=== PATIENT | male | born 1945 | race Caucasian/White ===

== ENCOUNTER 2019-06-02 10:56 | Inpatient (IN) | payer MEDICARE, OTHER ==
--- NOTE | 2019-06-02 11:37 | EDM.PDOC ---
ED HPI GENERAL MEDICAL PROBLEM - General Chief Complaint: Genitourinary Problem Stated Complaint: LEAKAGE/GALLBLADDER Time Seen by Provider: 06/02/19 11:37 - History of Present Illness INITIAL COMMENTS - FREE TEXT/NARRATIVE: 74-year-old male presents the emergency room with lower abdominal pain. Apparently the gentleman has not voided in about a week. He is developing some pressure in his lower abdomen. He does drink coffee has a drink or 2 nightly and drink some soda pop. He denies any nausea or vomiting. And he has not had any constipation. At this time he also complains of a sore throat. He denies any chest pain chest pressure or breathing difficulties or shortness of breath. This gentleman has not seen a physician ever he says. - Related Data Allergies Allergy/AdvReac Type Severity Reaction Status Date / Time No Known Allergies Allergy Verified 06/02/19 11:24 Home Meds: Home Meds Cranberry 500 mg PO DAILY 06/02/19 [History] Multivit-Minerals/Herbal 121 [Urinozinc Prostate Formula Cap] 1 tab PO DAILY 01/12 [History] Past Medical History - Past Health History Medical/Surgical History: Denies Medical/Surgical History Social & Family History - Tobacco Use Smoking Status *Q: Never Smoker - Caffeine Use Caffeine Use: Reports: Coffee - Recreational Drug Use Recreational Drug Use: No ED ROS GENERAL - Review of Systems Review Of Systems: See Below Constitutional: Reports: No Symptoms HEENT: Reports: Throat Pain Respiratory: Reports: No Symptoms Cardiovascular: Reports: No Symptoms GI/Abdominal: Reports: Abdominal Pain (Lower abdominal pain). Denies: Constipation, Diarrhea, Nausea, Vomiting : Reports: Urinary Retention Musculoskeletal: Reports: No Symptoms Skin: Reports: No Symptoms Neurological: Reports: No Symptoms Psychiatric: Reports: No Symptoms ED EXAM, GI/ABD - Physical Exam Exam: See Below Exam Limited By: No Limitations General Appearance: Alert, No Apparent Distress Eyes: Bilateral: Normal Appearance Ears: Normal External Exam, Normal Canal, Hearing Grossly Normal, Normal TMs Nose: Normal Inspection, Normal Mucosa, No Blood Throat/Mouth: Normal Inspection, Normal Lips, Normal Teeth, Normal Gums, Normal Oropharynx, Normal Voice, No Airway Compromise Head: Atraumatic, Normocephalic, Other (Acute changes noted with his teeth but they are worn down) Neck: Normal Inspection, Supple, Non-Tender. No: Lymphadenopathy (L), Lymphadenopathy (R) Respiratory/Chest: No Respiratory Distress, Lungs Clear, Normal Breath Sounds Cardiovascular: Regular Rate, Rhythm, No Edema, No Murmur GI/Abdominal Exam: Normal Bowel Sounds, Soft, Non-Tender, Other (Time of my exam his bladder was draining and he no longer had discomfort) Back Exam: Normal Inspection. No: CVA Tenderness (L), CVA Tenderness (R) Neurological: Alert, Oriented, Normal Cognition Skin Exam: Warm, Dry, Intact Lymphatic: No Adenopathy Course - Vital Signs Last Recorded V/S: Last Vital Signs Temp 36.9 C 06/02/19 11:22 Pulse 92 06/02/19 11:22 Resp 16 06/02/19 11:22 BP 219/115 H 06/02/19 11:22 Pulse Ox 100 06/02/19 11:22 - Orders/Labs/Meds Orders: Active Orders 24 hr Category Date Time Status Bladder Scan [RC] ASDIRECTED Care 06/02/19 12:20 Active Insert Tran Catheter [Insert Urinary Catheter] [OM.PC] Care 06/02/19 12:30 Ordered Q24H Urinary Catheter Assessment [RC] ASDIRECTED Care 06/02/19 12:21 Active CULTURE STREP A CONFIRMATION [RM] Stat Lab 06/02/19 12:18 Results Rapid Strep w/culture conf [STREP SCRN A RAPID W CULT Lab 06/02/19 12:18 Results CONF] [] Stat Lactated Ringers [Ringers, Lactated] 1,000 ml Med 06/02/19 13:26 Ordered IV .BOLUS Medication Orders Lactated Ringer's (Ringers, Lactated) 1,000 mls @ 999 mls/hr IV .BOLUS ONE Stop: 06/02/19 14:26 Labs: Laboratory Tests 06/02/19 06/02/19 06/02/19 Range/Units 11:40 12:25 12:25 WBC 13.22 H (4.23-9.07) K/mm3 RBC 4.20 L (4.63-6.08) M/mm3 Hgb 12.8 L (13.7-17.5) gm/dl Hct 38.9 L (40.1-51.0) % MCV 92.6 H (79.0-92.2) fl MCH 30.5 (25.7-32.2) pg MCHC 32.9 (32.2-35.5) g/dl RDW Std Deviation 43.0 (35.1-43.9) fL Plt Count 292 (163-337) K/mm3 MPV 10.1 (9.4-12.3) fl Neutrophils % (Manual) 86 H (40-60) % Band Neutrophils % 0 (0-10) % Lymphocytes % (Manual) 6 L (20-40) % Atypical Lymphs % 0 % Monocytes % (Manual) 7 (2-10) % Eosinophils % (Manual) 0 L (0.8-7.0) % Basophils % (Manual) 1 (0.2-1.2) Platelet Estimate Adequate RBC Morph Comment Normal Sodium 144 (136-145) mEq/L Potassium 4.7 (3.5-5.1) mEq/L Chloride 106 (98-107) mEq/L Carbon Dioxide 24 (21-32) mEq/L Anion Gap 18.7 H (5-15) BUN 69 H (7-18) mg/dL Creatinine 4.0 H (0.7-1.3) mg/dL Est Cr Clr Drug Dosing 17.78 mL/min Estimated GFR (MDRD) 15 (>60) mL/min BUN/Creatinine Ratio 17.3 (14-18) Glucose 116 H (83-115) mg/dL Calcium 9.4 (8.5-10.1) mg/dL Total Bilirubin 1.2 H (0.2-1.0) mg/dL AST 25 (15-37) U/L ALT 45 (16-63) U/L Alkaline Phosphatase 93 (46-116) U/L Total Protein 7.7 (6.4-8.2) g/dl Albumin 3.5 (3.4-5.0) g/dl Globulin 4.2 gm/dL Albumin/Globulin Ratio 0.8 L (1-2) Urine Color Yellow (Yellow) Urine Appearance Clear (Clear) Urine pH 5.5 (5.0-8.0) Ur Specific [place] 1.025 (1.005-1.030) Urine Protein Negative (Negative) Urine Glucose (UA) Negative (Negative) Urine Ketones Negative (Negative) Urine Occult Blood 2+ H (Negative) Urine Nitrite Negative (Negative) Urine Bilirubin Negative (Negative) Urine Urobilinogen 0.2 (0.2-1.0) Ur Leukocyte Esterase Negative (Negative) Urine RBC 20-30 H (0-5) /hpf Urine WBC 0-5 (0-5) /hpf Ur Squamous Epith Cells 0-5 (0-5) /hpf Urine Bacteria Few (FEW) /hpf Urine Mucus Rare (FEW) /hpf Meds: Medications Generic Name Dose Route Start Last Admin Trade Name Freq PRN Reason Stop Dose Admin Lactated Ringer's 1,000 mls @ 999 mls/hr 06/02/19 13:26 Ringers, Lactated IV 06/02/19 14:26 .BOLUS ONE Discontinued Medications Generic Name Dose Route Start Last Admin Trade Name Freq PRN Reason Stop Dose Admin Tamsulosin HCl 0.4 mg 06/02/19 11:58 06/02/19 12:13 Flomax PO 06/02/19 11:59 0.4 mg ONETIME ONE Administration - Re-Assessments/Exams Free Text/Narrative Re-Assessment/Exam: 06/02/19 12:05 Seeing appropriately did a bladder scan found over 1400 ccs, placed a Tran and the patient is significantly improving however the patient has significant hypertension and we are watching this closely this will probably require treatment. And the patient has a sore throat. Labs ordered we will start him on Flomax. 06/02/19 13:39 Labs have all returned urinalysis does not indicate a infectious process CBC shows a mild increase in his white count chemistries are very concerning with a BUN of 69 and a creatinine of 4.0 indicating a acute renal failure/injury most likely due to his post renal obstructive process. I did discuss the situation with our hospitalist who will admit the patient. Departure - Departure Time of Disposition: 13:44 Disposition: Admitted As Inpatient 68 Clinical Impression: Acute renal injury, Bladder outlet obstruction - Discharge Information Referrals: PCP,None [Primary Care Provider] - Forms: ED Department Discharge Sepsis Event Note - Evaluation Sepsis Screening Result: No Definite Risk - Focused Exam Vital Signs: Vital Signs Temp Pulse Resp BP Pulse Ox 06/02/19 11:22 36.9 C 92 16 219/115 H 100 Date Exam was Performed: 06/02/19 Time Exam was Performed: 13:38 - My Orders Last 24 Hours: My Active Orders 06/02/19 12:18 CULTURE STREP A CONFIRMATION [RM] Stat Rapid Strep w/culture conf [STREP SCRN A RAPID W CULT CONF] [RM] Stat 06/02/19 12:20 Bladder Scan [RC] ASDIRECTED 06/02/19 12:21 Urinary Catheter Assessment [RC] ASDIRECTED 06/02/19 12:30 Insert Tran Catheter [Insert Urinary Catheter] [OM.PC] Q24H 06/02/19 13:26 Lactated Ringers [Ringers, Lactated] 1,000 ml IV .BOLUS - Assessment/Plan Last 24 Hours: My Active Orders 06/02/19 12:18 CULTURE STREP A CONFIRMATION [RM] Stat Rapid Strep w/culture conf [STREP SCRN A RAPID W CULT CONF] [RM] Stat 06/02/19 12:20 Bladder Scan [RC] ASDIRECTED 06/02/19 12:21 Urinary Catheter Assessment [RC] ASDIRECTED 06/02/19 12:30 Insert Tran Catheter [Insert Urinary Catheter] [OM.PC] Q24H 06/02/19 13:26 Lactated Ringers [Ringers, Lactated] 1,000 ml IV .BOLUS
[2019-06-02] MEDS ORDERED: Tamsulosin 0.4 MG Cap.ER PO ONE (11:58)
[2019-06-02] MEDS ORDERED: Lactated Ringers 1,000 ML IV ONE (13:26)
--- NOTE | 2019-06-02 15:40 | PCM.HP.2 ---
H&P History of Present Illness - General Date of Service: 06/02/19 Admit Problem/Dx: Admission Diagnosis/Problem Admission Diagnosis/Problem Acute renal injury due to hypovolemia Source of Information: Patient, Family, Provider, RN Notes Reviewed History Limitations: Reports: No Limitations - History of Present Illness Initial Comments - Free Text/Narative: This is a 74 yo white male with no past medical hx/o presents to ED with complaints of lower abdominal pain and was diagnosed with acute urinary retention. He states he had trouble voiding for about a week now but really he has been having urinary retention since new year's day. He states he drinks coffee, alcohol, and soda considerably. He denies having GI or other symptoms such as dysuria and hematuria. Patient had retained urine of > 1400 after bladder scan in ED. He had plaza catheter placed in prior to coming to the floor for further management. - Related Data Allergies/Adverse Reactions: Allergies Allergy/AdvReac Type Severity Reaction Status Date / Time No Known Allergies Allergy Verified 06/02/19 11:24 Home Medications: Home Meds Cranberry 500 mg PO DAILY 06/02/19 [History] Multivit-Minerals/Herbal 121 [Urinozinc Prostate Formula Cap] 1 tab PO DAILY 01/12 [History] Past Medical History - Past Health History Medical/Surgical History: Denies Medical/Surgical History HEENT History: Reports: Other (See Below) Other HEENT History: allergies Gastrointestinal History: Reports: GERD Genitourinary History: Reports: Retention, Urinary Other Genitourinary History: seems to happen after he was drinking Psychiatric History: Reports: Anxiety Other Psychiatric History: no formally diagnosed - Infectious Disease History Infectious Disease History: Reports: Measles, Mumps - Past Surgical History HEENT Surgical History: Reports: None Social & Family History - Family History Family Medical History: Noncontributory - Tobacco Use Smoking Status *Q: Never Smoker Second Hand Smoke Exposure: No - Caffeine Use Caffeine Use: Reports: Coffee, Soda - Alcohol Use Days Per Week of Alcohol Use: 2 Number of Drinks Per Day: 0 Total Drinks Per Week: 0 Date of Last Drink: 05/26/19 Time of Last Drink: 23:00 - Recreational Drug Use Recreational Drug Use: No H&P Review of Systems - Review of Systems: Review Of Systems: Comprehensive ROS is negative, except as noted in HPI. General: Denies: Fever, Chills, Malaise, Weakness, Fatigue HEENT: Reports: No Symptoms Pulmonary: Denies: Shortness of Breath Cardiovascular: Denies: Chest Pain, Dyspnea on Exertion, Lightheadedness Gastrointestinal: Denies: Abdominal Pain, Nausea, Vomiting Genitourinary: Reports: Retention Musculoskeletal: Reports: No Symptoms Skin: Reports: No Symptoms Psychiatric: Denies: Confusion, Anxiety, Agitation Neurological: Denies: Confusion, Numbness, Syncope, Trouble Speaking, Weakness Hematologic/Lymphatic: Reports: No Symptoms Immunologic: Reports: No Symptoms Exam - Exam Exam: See Below - Vital Signs Vital Signs: Last Vital Signs Temp 36.9 C 06/02/19 11:22 Pulse 92 06/02/19 11:22 Resp 16 06/02/19 11:22 BP 219/115 H 06/02/19 11:22 Pulse Ox 100 06/02/19 11:22 Weight: 75.568 kg - Exam General: Alert, Oriented, Cooperative HEENT: Conjunctiva Clear, EACs Clear, EOMI, Hearing Intact, Nares Patent, Normal Nasal Septum, Posterior Pharynx Clear, Pupils Equal, Pupils Reactive, Other (halitosis) Neck: Supple, Trachea Midline Lungs: Clear to Auscultation, Normal Respiratory Effort Cardiovascular: Regular Rate, Regular Rhythm GI/Abdominal Exam: Normal Bowel Sounds, Soft, Non-Tender, No Organomegaly, No Distention, No Abnormal Bruit, No Mass (Male) Exam: Other (indwelling plaza catheter). No: Normal Prostate, Hernia , Scrotal Swelling Rectal (Males) Exam: BPH. No: Normal Rectal Tone, Fecal Impaction, Hemorrhoids , Perirectal Abscess, Prostate Nodule, Rectal Fissure, Tenderness Back Exam: Normal Inspection, Decreased Range of Motion Extremities: Normal Inspection, Normal Range of Motion, Non-Tender, No Pedal Edema, Normal Capillary Refill Peripheral Pulses: 2+: Dorsalis Pedis (L), Dorsalis Pedis (R) Skin: Warm, Dry, Intact Skin Alteration Location (Drawings Not To Scale): 1 - excoriations and mild erythema 2 - excoriations and mild erythema Neuro Extensive - Mental Status: Oriented x3, Normal Cognition, Memory Intact Neuro Extensive - Motor, Sensory, Reflexes: CN II-XII Intact, Normal Gait Psychiatric: Alert, Normal Affect, Normal Mood - Patient Data Lab Results Last 24 hrs: Laboratory Results - last 24 hr 06/02/19 06/02/19 06/02/19 Range/Units 11:40 12:25 12:25 WBC 13.22 H (4.23-9.07) K/mm3 RBC 4.20 L (4.63-6.08) M/mm3 Hgb 12.8 L (13.7-17.5) gm/dl Hct 38.9 L (40.1-51.0) % MCV 92.6 H (79.0-92.2) fl MCH 30.5 (25.7-32.2) pg MCHC 32.9 (32.2-35.5) g/dl RDW Std Deviation 43.0 (35.1-43.9) fL Plt Count 292 (163-337) K/mm3 MPV 10.1 (9.4-12.3) fl Neutrophils % (Manual) 86 H (40-60) % Band Neutrophils % 0 (0-10) % Lymphocytes % (Manual) 6 L (20-40) % Atypical Lymphs % 0 % Monocytes % (Manual) 7 (2-10) % Eosinophils % (Manual) 0 L (0.8-7.0) % Basophils % (Manual) 1 (0.2-1.2) Platelet Estimate Adequate RBC Morph Comment Normal Sodium 144 (136-145) mEq/L Potassium 4.7 (3.5-5.1) mEq/L Chloride 106 (98-107) mEq/L Carbon Dioxide 24 (21-32) mEq/L Anion Gap 18.7 H (5-15) BUN 69 H (7-18) mg/dL Creatinine 4.0 H (0.7-1.3) mg/dL Est Cr Clr Drug Dosing 17.78 mL/min Estimated GFR (MDRD) 15 (>60) mL/min BUN/Creatinine Ratio 17.3 (14-18) Glucose 116 H (83-115) mg/dL Calcium 9.4 (8.5-10.1) mg/dL Total Bilirubin 1.2 H (0.2-1.0) mg/dL AST 25 (15-37) U/L ALT 45 (16-63) U/L Alkaline Phosphatase 93 (46-116) U/L Total Protein 7.7 (6.4-8.2) g/dl Albumin 3.5 (3.4-5.0) g/dl Globulin 4.2 gm/dL Albumin/Globulin Ratio 0.8 L (1-2) Urine Color Yellow (Yellow) Urine Appearance Clear (Clear) Urine pH 5.5 (5.0-8.0) Ur Specific [place] 1.025 (1.005-1.030) Urine Protein Negative (Negative) Urine Glucose (UA) Negative (Negative) Urine Ketones Negative (Negative) Urine Occult Blood 2+ H (Negative) Urine Nitrite Negative (Negative) Urine Bilirubin Negative (Negative) Urine Urobilinogen 0.2 (0.2-1.0) Ur Leukocyte Esterase Negative (Negative) Urine RBC 20-30 H (0-5) /hpf Urine WBC 0-5 (0-5) /hpf Ur Squamous Epith Cells 0-5 (0-5) /hpf Urine Bacteria Few (FEW) /hpf Urine Mucus Rare (FEW) /hpf Result Diagrams: 06/03/19 06:10 06/03/19 06:10 Rodo Results Last 24 hrs: Microbiology 06/02/19 12:18 Group A Streptococcus Rapid Screen - Final Throat NEGATIVE STREP A SCREEN REFERENCE RANGE: NEGATIVE Sepsis Event Note - Evaluation Sepsis Screening Result: No Definite Risk - Focused Exam Vital Signs: Vital Signs Temp Pulse Resp BP Pulse Ox 06/02/19 11:22 36.9 C 92 16 219/115 H 100 Date Exam was Performed: 06/03/19 Time Exam was Performed: 18:53 Problem List Initiated/Reviewed/Updated: Yes Orders Last 24hrs: Active Orders 24 hr Category Date Time Status Admission Status [Patient Status] [ADT] Routine ADT 06/02/19 14:15 Active Bladder Scan [RC] ASDIRECTED Care 06/02/19 12:20 Active Insert Plaza Catheter [Insert Urinary Catheter] [OM.PC] Care 06/02/19 12:30 Ordered Q24H Urinary Catheter Assessment [RC] ASDIRECTED Care 06/02/19 12:21 Active CULTURE STREP A CONFIRMATION [RM] Stat Lab 06/02/19 12:18 Results Rapid Strep w/culture conf [STREP SCRN A RAPID W CULT Lab 06/02/19 12:18 Results CONF] [RM] Stat hydrALAZINE [Apresoline] Med 06/02/19 15:45 Once 20 mg IV ONETIME ONE Medication Orders Hydralazine HCl (Apresoline) 20 mg IV ONETIME ONE Stop: 06/02/19 15:46 Assessment/Plan Comment:: Acute: Urinary Retention Suspected 2/2 WILCOX vs BPH. Carries no hx/o BPH in the past. Had trouble voiding during new year's day and now only makes dribbles. Had > 1400 cc of retained urine on bladder scan in ED. Plan: Plaza catheter, flomax, and finasteride. Urology evaluation after discharge. EDENILSON likely 2/2 Obstructive Uropathy. BUN of 69 and Cr of 4. Carries no hx/o CKD in the past. Plan: fluid challenge, electrolytes studies and renal US for obstructive Uropathy. Malignant HTN. Documented BP of 195/109 and 186/88 mmHg. No hx/o HTN. He is asymptomatic except for urinary retention. Plan: Stat Clonidine and Hydralazine. Start Amlodipine in AM. Hold diuretics for now due to EDENILSON. Leukocytosis with WBC of 13.22 with Neutrophils of 86%. No signs or symptoms of systemic infection. Will monitor. Mild Hyperglycemia with BS 116. Carries no hx/o Diabetes or Glucose Intolerance. Likely 2/2 stress. Will monitor. Chronic: None Plan: Admit to [facility]. IV fluids for hydration. Routine AM Labs. Regular diet. DVT/ GI Prophylaxis. Code status is DNR. - Mortality Measure Prognosis:: Good
[2019-06-02] MEDS ORDERED: hydrALAZINE 20 MG/ML SDV IV ONE (15:45)
[2019-06-02] MEDS ORDERED: Ondansetron 4 MG/2 ML SDV IV PRN (16:42)
[2019-06-02] MEDS ORDERED: Acetaminophen/HYDROcodone 325-5 MG Tab PO PRN (16:42)
[2019-06-02] MEDS ORDERED: Bisacodyl 5 MG Tab PO PRN (16:42)
[2019-06-02] MEDS ORDERED: Albuterol/Ipratropium 3.0-0.5 MG/3 ML Neb Soln NEB PRN (16:42)
[2019-06-02] MEDS ORDERED: Docusate Sodium 100 MG Cap PO PRN (16:42)
[2019-06-02] MEDS ORDERED: Promethazine 6.25 MG in Sodium Chloride 0.9% 50 ML IV PRN (16:42)
[2019-06-02] MEDS ORDERED: HYDROmorphone 0.5 MG/0.5 ML Syringe IVPUSH PRN (16:42)
[2019-06-02] MEDS ORDERED: Acetaminophen 325 MG Tab PO PRN (16:42)
[2019-06-02] MEDS ORDERED: cloNIDine 0.1 MG Tab PO ONE (17:00)
[2019-06-02] MEDS ORDERED: amLODIPine 5 MG Tab PO ONE (17:00)
[2019-06-02] MEDS ORDERED: Temazepam 15 MG Cap PO PRN (21:00)
[2019-06-02] MEDS ORDERED: LORazepam 2 MG/ML SDV IVPUSH ONE (21:00)
[2019-06-02] MEDS: amLODIPine 10 MG Tab PO SCH (22:06)
[2019-06-02] MEDS: Finasteride 5 MG Tab PO SCH (22:07)
[2019-06-03] MEDS: Sodium Chloride 0.9% 1,000 ML IV SCH ×2 (01:20→10:01)
--- NOTE | 2019-06-03 06:58 | PCM.PN ---
- General Info Date of Service: 06/03/19 Admission Dx/Problem (Free Text): Admission Diagnosis/Problem Admission Diagnosis/Problem Acute renal injury due to hypovolemia Subjective Update: Follow Up Functional Status: Reports: Pain Controlled, Tolerating Diet, Ambulating. Denies: New Symptoms - Review of Systems General: Denies: Fever, Chills HEENT: Reports: No Symptoms Pulmonary: Denies: Shortness of Breath, Cough Cardiovascular: Denies: Chest Pain, Dyspnea on Exertion, Lightheadedness Gastrointestinal: Denies: Abdominal Pain, Nausea, Vomiting Genitourinary: Reports: No Symptoms Musculoskeletal: Reports: No Symptoms Skin: Denies: Cyanosis, Mottled, Pallor, Diaphoresis, Bruising, Rash Neurological: Denies: Difficulty Walking, Weakness, Gait Disturbance Psychiatric: Denies: Depression, Anxiety, Agitation, Hallucinations Systems Review Comment:: No overnight or acute issues. His Cr level is now down to 2.0. His blood pressures have stabilized. - Patient Data Vitals - Most Recent: Last Vital Signs Temp 36.9 C 06/03/19 04:33 Pulse 86 06/03/19 04:33 Resp 18 06/03/19 04:33 BP 143/86 H 06/03/19 04:33 Pulse Ox 94 L 06/03/19 04:33 Weight - Most Recent: 76.113 kg I&O - Last 24 Hours: Intake & Output 06/02/19 06/02/19 06/03/19 14:59 22:59 06:59 Intake Total 200 2330 Output Total 3400 650 1100 Balance -3400 -450 1230 Lab Results Last 24 Hours: Laboratory Results - last 24 hr 06/02/19 06/02/19 06/02/19 Range/Units 11:40 11:40 11:40 WBC (4.23-9.07) K/mm3 RBC (4.63-6.08) M/mm3 Hgb (13.7-17.5) gm/dl Hct (40.1-51.0) % MCV (79.0-92.2) fl MCH (25.7-32.2) pg MCHC (32.2-35.5) g/dl RDW Std Deviation (35.1-43.9) fL Plt Count (163-337) K/mm3 MPV (9.4-12.3) fl Neut % (Auto) (34.0-67.9) % Lymph % (Auto) (21.8-53.1) % Tillman % (Auto) (5.3-12.2) % Eos % (Auto) (0.8-7.0) Baso % (Auto) (0.1-1.2) % Neut # (Auto) (1.78-5.38) K/mm3 Lymph # (Auto) (1.32-3.57) K/mm3 Tillman # (Auto) (0.30-0.82) K/mm3 Eos # (Auto) (0.04-0.54) K/mm3 Baso # (Auto) (0.01-0.08) K/mm3 Neutrophils % (Manual) (40-60) % Band Neutrophils % (0-10) % Lymphocytes % (Manual) (20-40) % Atypical Lymphs % % Monocytes % (Manual) (2-10) % Eosinophils % (Manual) (0.8-7.0) % Basophils % (Manual) (0.2-1.2) Platelet Estimate RBC Morph Comment Sodium (136-145) mEq/L Potassium (3.5-5.1) mEq/L Chloride (98-107) mEq/L Carbon Dioxide (21-32) mEq/L Anion Gap (5-15) BUN (7-18) mg/dL Creatinine (0.7-1.3) mg/dL Est Cr Clr Drug Dosing mL/min Estimated GFR (MDRD) (>60) mL/min BUN/Creatinine Ratio (14-18) Glucose (83-115) mg/dL Calcium (8.5-10.1) mg/dL Total Bilirubin (0.2-1.0) mg/dL AST (15-37) U/L ALT (16-63) U/L Alkaline Phosphatase (46-116) U/L Total Protein (6.4-8.2) g/dl Albumin (3.4-5.0) g/dl Globulin gm/dL Albumin/Globulin Ratio (1-2) Urine Color Yellow (Yellow) Urine Appearance Clear (Clear) Urine pH 5.5 (5.0-8.0) Ur Specific [place] 1.025 (1.005-1.030) Urine Protein Negative (Negative) Urine Glucose (UA) Negative (Negative) Urine Ketones Negative (Negative) Urine Occult Blood 2+ H (Negative) Urine Nitrite Negative (Negative) Urine Bilirubin Negative (Negative) Urine Urobilinogen 0.2 (0.2-1.0) Ur Leukocyte Esterase Negative (Negative) Urine RBC 20-30 H (0-5) /hpf Urine WBC 0-5 (0-5) /hpf Ur Squamous Epith Cells 0-5 (0-5) /hpf Urine Bacteria Few (FEW) /hpf Urine Mucus Rare (FEW) /hpf Ur Random Creatinine 177.9 H (30.0-125.0) mg/dL Ur Random Sodium 27 L (40-220) mEq/L 06/02/19 06/02/19 06/02/19 Range/Units 12:25 12:25 20:15 WBC 13.22 H (4.23-9.07) K/mm3 RBC 4.20 L (4.63-6.08) M/mm3 Hgb 12.8 L (13.7-17.5) gm/dl Hct 38.9 L (40.1-51.0) % MCV 92.6 H (79.0-92.2) fl MCH 30.5 (25.7-32.2) pg MCHC 32.9 (32.2-35.5) g/dl RDW Std Deviation 43.0 (35.1-43.9) fL Plt Count 292 (163-337) K/mm3 MPV 10.1 (9.4-12.3) fl Neut % (Auto) (34.0-67.9) % Lymph % (Auto) (21.8-53.1) % Tillman % (Auto) (5.3-12.2) % Eos % (Auto) (0.8-7.0) Baso % (Auto) (0.1-1.2) % Neut # (Auto) (1.78-5.38) K/mm3 Lymph # (Auto) (1.32-3.57) K/mm3 Tillman # (Auto) (0.30-0.82) K/mm3 Eos # (Auto) (0.04-0.54) K/mm3 Baso # (Auto) (0.01-0.08) K/mm3 Neutrophils % (Manual) 86 H (40-60) % Band Neutrophils % 0 (0-10) % Lymphocytes % (Manual) 6 L (20-40) % Atypical Lymphs % 0 % Monocytes % (Manual) 7 (2-10) % Eosinophils % (Manual) 0 L (0.8-7.0) % Basophils % (Manual) 1 (0.2-1.2) Platelet Estimate Adequate RBC Morph Comment Normal Sodium 144 145 (136-145) mEq/L Potassium 4.7 4.1 (3.5-5.1) mEq/L Chloride 106 108 H (98-107) mEq/L Carbon Dioxide 24 27 (21-32) mEq/L Anion Gap 18.7 H 14.1 (5-15) BUN 69 H 55 H (7-18) mg/dL Creatinine 4.0 H 2.9 H (0.7-1.3) mg/dL Est Cr Clr Drug Dosing 17.78 23.77 mL/min Estimated GFR (MDRD) 15 21 (>60) mL/min BUN/Creatinine Ratio 17.3 19.0 H (14-18) Glucose 116 H 139 H (83-115) mg/dL Calcium 9.4 8.5 (8.5-10.1) mg/dL Total Bilirubin 1.2 H (0.2-1.0) mg/dL AST 25 (15-37) U/L ALT 45 (16-63) U/L Alkaline Phosphatase 93 (46-116) U/L Total Protein 7.7 (6.4-8.2) g/dl Albumin 3.5 (3.4-5.0) g/dl Globulin 4.2 gm/dL Albumin/Globulin Ratio 0.8 L (1-2) Urine Color (Yellow) Urine Appearance (Clear) Urine pH (5.0-8.0) Ur Specific [place] (1.005-1.030) Urine Protein (Negative) Urine Glucose (UA) (Negative) Urine Ketones (Negative) Urine Occult Blood (Negative) Urine Nitrite (Negative) Urine Bilirubin (Negative) Urine Urobilinogen (0.2-1.0) Ur Leukocyte Esterase (Negative) Urine RBC (0-5) /hpf Urine WBC (0-5) /hpf Ur Squamous Epith Cells (0-5) /hpf Urine Bacteria (FEW) /hpf Urine Mucus (FEW) /hpf Ur Random Creatinine (30.0-125.0) mg/dL Ur Random Sodium (40-220) mEq/L 06/03/19 Range/Units 06:10 WBC 10.40 H (4.23-9.07) K/mm3 RBC 3.93 L (4.63-6.08) M/mm3 Hgb 12.0 L (13.7-17.5) gm/dl Hct 36.7 L (40.1-51.0) % MCV 93.4 H (79.0-92.2) fl MCH 30.5 (25.7-32.2) pg MCHC 32.7 (32.2-35.5) g/dl RDW Std Deviation 43.1 (35.1-43.9) fL Plt Count 285 (163-337) K/mm3 MPV 10.0 (9.4-12.3) fl Neut % (Auto) 78.0 H (34.0-67.9) % Lymph % (Auto) 8.6 L (21.8-53.1) % Tillman % (Auto) 11.0 (5.3-12.2) % Eos % (Auto) 1.3 (0.8-7.0) Baso % (Auto) 0.3 (0.1-1.2) % Neut # (Auto) 8.12 H (1.78-5.38) K/mm3 Lymph # (Auto) 0.89 L (1.32-3.57) K/mm3 Tillman # (Auto) 1.14 H (0.30-0.82) K/mm3 Eos # (Auto) 0.14 (0.04-0.54) K/mm3 Baso # (Auto) 0.03 (0.01-0.08) K/mm3 Neutrophils % (Manual) (40-60) % Band Neutrophils % (0-10) % Lymphocytes % (Manual) (20-40) % Atypical Lymphs % % Monocytes % (Manual) (2-10) % Eosinophils % (Manual) (0.8-7.0) % Basophils % (Manual) (0.2-1.2) Platelet Estimate RBC Morph Comment Sodium (136-145) mEq/L Potassium (3.5-5.1) mEq/L Chloride (98-107) mEq/L Carbon Dioxide (21-32) mEq/L Anion Gap (5-15) BUN (7-18) mg/dL Creatinine (0.7-1.3) mg/dL Est Cr Clr Drug Dosing mL/min Estimated GFR (MDRD) (>60) mL/min BUN/Creatinine Ratio (14-18) Glucose (83-115) mg/dL Calcium (8.5-10.1) mg/dL Total Bilirubin (0.2-1.0) mg/dL AST (15-37) U/L ALT (16-63) U/L Alkaline Phosphatase (46-116) U/L Total Protein (6.4-8.2) g/dl Albumin (3.4-5.0) g/dl Globulin gm/dL Albumin/Globulin Ratio (1-2) Urine Color (Yellow) Urine Appearance (Clear) Urine pH (5.0-8.0) Ur Specific [place] (1.005-1.030) Urine Protein (Negative) Urine Glucose (UA) (Negative) Urine Ketones (Negative) Urine Occult Blood (Negative) Urine Nitrite (Negative) Urine Bilirubin (Negative) Urine Urobilinogen (0.2-1.0) Ur Leukocyte Esterase (Negative) Urine RBC (0-5) /hpf Urine WBC (0-5) /hpf Ur Squamous Epith Cells (0-5) /hpf Urine Bacteria (FEW) /hpf Urine Mucus (FEW) /hpf Ur Random Creatinine (30.0-125.0) mg/dL Ur Random Sodium (40-220) mEq/L Rodo Results Last 24 Hours: Microbiology 06/02/19 12:18 Group A Streptococcus Rapid Screen - Final Throat NEGATIVE STREP A SCREEN REFERENCE RANGE: NEGATIVE Med Orders - Current: Current Medications Acetaminophen (Tylenol) 650 mg PO Q4H PRN PRN Reason: Pain (Mild 1-3)/fever Last Admin: 06/03/19 05:55 Dose: 650 mg Hydrocodone Bitart/Acetaminophen (Branch 325-5 Mg) 1 tab PO Q4H PRN PRN Reason: Pain (moderate 4-6) Albuterol/Ipratropium (Duoneb 3.0-0.5 Mg/3 Ml) 3 ml NEB Q4H PRN PRN Reason: Shortness Of Breath/wheezing Amlodipine Besylate (Norvasc) 10 mg PO BEDTIME NU Last Admin: 06/02/19 22:06 Dose: 10 mg Bisacodyl (Dulcolax) 5 mg PO DAILY PRN PRN Reason: Constipation Clonidine HCl (Catapres) 0.1 mg PO DAILY [facility] Stop: 06/03/19 09:01 Docusate Sodium (Colace) 100 mg PO BID PRN PRN Reason: Constipation Finasteride (Proscar) 5 mg PO BEDTIME [facility] Last Admin: 06/02/19 22:07 Dose: 5 mg Hydromorphone HCl (Dilaudid) 0.25 mg IVPUSH Q2H PRN PRN Reason: Pain (severe 7-10) Promethazine HCl 6.25 mg/ (Sodium Chloride) 50.25 mls @ 100 mls/hr IV Q6H PRN PRN Reason: Nausea/Vomiting Sodium Chloride (Normal Saline) 1,000 mls @ 125 mls/hr IV ASDIRECTED [facility] Last Admin: 06/03/19 01:20 Dose: 125 mls/hr Ondansetron HCl (Zofran) 4 mg IV Q6H PRN PRN Reason: Nausea/Vomiting Senna/Docusate Sodium (Senna Plus) 1 tab PO BID PRN PRN Reason: Constipation Tamsulosin HCl (Flomax) 0.4 mg PO PCBREAKFAST [facility] Temazepam (Restoril) 15 mg PO BEDTIME PRN PRN Reason: Sleep Discontinued Medications Amlodipine Besylate (Norvasc) 5 mg PO ONETIME ONE Stop: 06/02/19 17:01 Last Admin: 06/02/19 18:12 Dose: Not Given Clonidine HCl (Catapres) 0.1 mg PO ONETIME ONE Stop: 06/02/19 17:01 Last Admin: 06/02/19 17:10 Dose: 0.1 mg Hydralazine HCl (Apresoline) 20 mg IV ONETIME ONE Stop: 06/02/19 15:46 Last Admin: 06/02/19 15:49 Dose: 20 mg Lactated Ringer's (Ringers, Lactated) 1,000 mls @ 999 mls/hr IV .BOLUS ONE Stop: 06/02/19 14:26 Last Admin: 06/02/19 13:54 Dose: 999 mls/hr Lorazepam (Ativan) 0.5 mg IVPUSH ONETIME ONE Stop: 06/02/19 21:01 Tamsulosin HCl (Flomax) 0.4 mg PO ONETIME ONE Stop: 06/02/19 11:59 Last Admin: 06/02/19 12:13 Dose: 0.4 mg - Exam General: Alert, Oriented, Cooperative, No Acute Distress HEENT: Pupils Equal, Pupils Reactive, EOMI, Mucous Membr. Moist/[place] Neck: Supple Lungs: Clear to Auscultation, Normal Respiratory Effort Cardiovascular: Regular Rate, Regular Rhythm GI/Abdominal Exam: Normal Bowel Sounds, Soft, Non-Tender, No Organomegaly, No Distention, No Abnormal Bruit (Male) Exam: Other Back Exam: Normal Inspection, Decreased Range of Motion Extremities: Normal Inspection, Normal Range of Motion, Non-Tender, No Pedal Edema, Normal Capillary Refill Peripheral Pulses: 2+: Dorsalis Pedis (L), Dorsalis Pedis (R) Skin: Warm, Dry, Intact Neurological: No New Focal Deficit Psy/Mental Status: Alert, Normal Affect, Normal Mood Sepsis Event Note - Evaluation Sepsis Screening Result: No Definite Risk - Focused Exam Vital Signs: Vital Signs Temp Pulse Resp BP Pulse Ox 06/03/19 04:33 36.9 C 86 18 143/86 H 94 L 06/03/19 00:04 37.3 C 88 18 143/79 H 94 L 06/02/19 22:06 132/72 06/02/19 20:16 37.1 C 81 18 132/72 96 Date Exam was Performed: 06/03/19 Time Exam was Performed: 18:55 - Problem List Review Problem List Initiated/Reviewed/Updated: Yes - My Orders Last 24 Hours: My Active Orders 06/02/19 16:42 Oxygen Therapy [RC] PRN VTE/DVT Education [RC] BID Vital Signs [RC] Q4HR Consult to Case Management/Rewinder [CONS] Routine Consult to Spiritual Care [CONS] Routine Acetaminophen [Tylenol] 650 mg PO Q4H PRN Acetaminophen/HYDROcodone [Branch 325-5 MG] 1 tab PO Q4H PRN Albuterol/Ipratropium [DuoNeb 3.0-0.5 MG/3 ML] 3 ml NEB Q4H PRN Docusate Sodium [Colace] 100 mg PO BID PRN Docusate Sodium/Sennosides [Senna Plus] 1 tab PO BID PRN HYDROmorphone [Dilaudid] 0.25 mg IVPUSH Q2H PRN Ondansetron [Zofran] 4 mg IV Q6H PRN Promethazine [Phenergan] 6.25 mg Sodium Chloride 0.9% [Normal Saline] 50 ml IV Q6H bisacodyL [Dulcolax] 5 mg PO DAILY PRN Sequential Compression Device [OM.PC] Per Unit Routine Resuscitation Status Routine 06/02/19 16:43 Antiembolic Devices [RC] BID RT Aerosol Therapy [RC] ASDIRECTED 06/02/19 16:45 Sodium Chloride 0.9% [Normal Saline] 1,000 ml IV ASDIRECTED 06/02/19 21:00 Finasteride [Proscar] 5 mg PO BEDTIME Temazepam [Restoril] 15 mg PO BEDTIME PRN amLODIPine [Norvasc] 10 mg PO BEDTIME 06/02/19 22:00 CREATU+5 HIAA Routine UREA NITROGEN, URINE Routine URIC ACID, URINE Routine 06/02/19 Dinner Regular Diet [DIET] 06/03/19 06:10 CBC WITH AUTO DIFF [HEME] AM COMPREHENSIVE METABOLIC PN,CMP [CHEM] AM MAGNESIUM [CHEM] AM PHOSPHORUS [CHEM] AM 06/03/19 07:00 Retroperitoneal Comp [US] Routine 06/03/19 09:00 cloNIDine [Catapres] 0.1 mg PO DAILY 06/03/19 10:00 Tamsulosin [Flomax] 0.4 mg PO PCBREAKFAST 06/04/19 05:11 CBC WITH AUTO DIFF [HEME] AM COMPREHENSIVE METABOLIC PN,CMP [CHEM] AM MAGNESIUM [CHEM] AM PHOSPHORUS [CHEM] AM 06/05/19 05:11 CBC WITH AUTO DIFF [HEME] AM COMPREHENSIVE METABOLIC PN,CMP [CHEM] AM MAGNESIUM [CHEM] AM PHOSPHORUS [CHEM] AM 06/06/19 05:11 COMPREHENSIVE METABOLIC PN,CMP [CHEM] AM MAGNESIUM [CHEM] AM PHOSPHORUS [CHEM] AM - Plan Plan:: Acute: Urinary Retention Suspected 2/2 WILCOX vs BPH, Improved. Carries no hx/o BPH in the past. Had trouble voiding during new year's day and now only makes dribbles. Had > 1400 cc of retained urine on bladder scan in ED. Has good urine output. Plan: Tran catheter, flomax, and finasteride. Urology evaluation after discharge. EDENILSON 2/2 Obstructive Uropathy, Improved with fluid challenge. BUN of 69 and Cr of 4. Carries no hx/o CKD in the past. Based on renal work up he has no renal disease and his renal ultrasound shows no obstructive uropathy. Malignant HTN, Improved. Documented BP of 195/109 and 186/88 mmHg. No hx/o HTN. He is asymptomatic except for urinary retention. Plan: Stat Clonidine and Hydralazine. Start Amlodipine and ARB/HCTZ. Leukocytosis with WBC of 13.22 with Neutrophils of 86%, Improved. No signs or symptoms of systemic infection. Will monitor. Mild Hyperglycemia with BS 116, Resolved. Carries no hx/o Diabetes or Glucose Intolerance. Likely 2/2 stress. Will monitor. Chronic: None Plan: Improved immediately with fluid challenge. IVF to d/c after current bag is done. Routine AM Labs. Possible discharge in AM.
[2019-06-03] MEDS ORDERED: cloNIDine 0.1 MG Tab PO SCH (09:00)
[2019-06-03] MEDS ORDERED: Calcium Carbonate 500 MG Tab.Chew PO PRN (09:31)
--- NOTE | 2019-06-03 09:38 | US ---
Renal ultrasound: Multiple real-time images of the kidneys were obtained. Comparison: No previous renal imaging is available. Extrarenal pelvis is noted within the right kidney which is felt to be a normal variant. No hydronephrosis is seen. No cyst or solid abnormality is appreciated within either kidney. Resistivity indices are normal within both kidneys. Right kidney length is 10.0 cm and left kidney length is 10.3 cm. Tran catheter is noted within a collapsed bladder. Impression: 1. Extrarenal pelvis within the right kidney believed to represent a normal variant. 2. Tran catheter in place within a collapsed bladder. 3. No additional abnormality is appreciated on renal ultrasound exam. Diagnostic code #2 This report was dictated in [place] Standard Time
[2019-06-03] MEDS: Tamsulosin 0.4 MG Cap.ER PO SCH (10:03)
[2019-06-03] MEDS ORDERED: Famotidine 20 MG/2 ML SDV IVPUSH ONE (11:00)
[2019-06-03] MEDS ORDERED: Pantoprazole 40 MG Vial IVPUSH ONE ×2 (11:00→13:45)
[2019-06-03] MEDS ORDERED: Famotidine 20 MG Tab PO ONE (13:45)
[2019-06-03] MEDS ORDERED: Sodium Chloride 0.9% 1,000 ML IV SCH (18:15)
[2019-06-03] MEDS: Finasteride 5 MG Tab PO SCH (20:34)
[2019-06-03] MEDS: amLODIPine 10 MG Tab PO SCH (20:38)
[2019-06-03] MEDS: Famotidine 20 MG Tab PO SCH (20:39)
[2019-06-03] MEDS ORDERED: Hydrochlorothiazide 12.5 MG Cap PO SCH (21:00)
[2019-06-03] MEDS ORDERED: Losartan 25 MG Tab PO SCH (21:00)
--- NOTE | 2019-06-04 08:01 | PCM.DCSUM1 ---
Discharge Summary - Hospital Course HPI Initial Comments: This is a 74 yo white male with no past medical hx/o presents to ED with complaints of lower abdominal pain and was diagnosed with acute urinary retention. He states he had trouble voiding for about a week now but really he has been having urinary retention since new year's day. He states he drinks coffee, alcohol, and soda considerably. He denies having GI or other symptoms such as dysuria and hematuria. Patient had retained urine of > 1400 after bladder scan in ED. He had plaza catheter placed in prior to coming to the floor for further management. Diagnosis: Stroke: No Modified [place] Scale: No Symptoms at All Modified Curtis Scale Score: 0 - Discharge Data Discharge Date: 06/04/19 (Admit date: 06/02/18) Discharge Disposition: Home, Self-Care 01 Condition: Good - Referral to Home Health Primary Care Physician: PCP None - Patient Summary/Data Consults: Consultations 06/02/19 16:42 Consult to Case Management/Bathroom Tiling Professional [CONS] Routine Consult to Spiritual Care [CONS] Routine Labs Pending at D/C: 24 hr urine nitrogen, 24 hr urine uric acid Recommended Follow-up Testing/Procedures: Follow-up with a primary care provider within 1 week. Recommend outpatient urology follow-up. Hospital Course: Desmond was admitted to the floor with abdominal pain and acute renal injury secondary to acute urinary retention. He is on no medications. He did have a Plaza catheter placed in the ED and he tolerated this well on the floor. He was noted to have good urinary output. Rectal exam was done and although his prostate did feel enlarged no nodules were noted. He was started on 0.4 mg p.o. Flomax and 5 mg p.o. finasteride at bedtime with good response. He was noted to have elevated blood pressure and 5 mg of Norvasc p.o. at bedtime, 25 mg p.o. daily HCTZ, and 25 mg p.o. daily losartan were started. Parameters were placed on these medications and he was advised to check his blood pressure prior to taking them. He was also recommended to start a low-salt diet. Renal ultrasound was obtained and showed 1 "extrarenal pelvis within the right kidney believed to represent a normal variant. 2. Plaza catheter in place with a collapsed bladder. 3. No additional abnormalities appreciated on renal ultrasound exam." His creatinine continue to trend down while here with inversely proportional increase in GFR. Urine random creatinine was 177.9 with a urine random sodium of 27. Urine uric acid and urine urea nitrogen were still pending. He was advised to establish with a primary care provider within 1 week of discharge. He was also advised to follow-up with a urologist at next available appointment. He was discharged with a Plaza catheter. He was advised to return the emergency room or follow-up with his primary care provider should symptoms return or worsen. Discharged today. - Patient Instructions Diet: Usual Diet as Tolerated, Low Sodium Activity: As Tolerated Driving: May Drive Today Showering/Bathing: May Shower Notify Provider of: Fever, Increased Pain, Nausea and/or Vomiting Other/Special Instructions: - Please take all new medications as directed. - Resume all home medications and routine home activities as tolerated. - Recommend low salt diet. - Check vitals, log it, and follow parameters before taking BP medications. - Call or follow up with your PCP for any questions or concerns after discharge. - Follow up with your PCP in 1 week. - Recommned outaptient urology eval. - Come back or seek immediate care should your symptoms persist or get worse - Discharge Plan *PRESCRIPTION DRUG MONITORING PROGRAM REVIEWED*: Not Applicable *COPY OF PRESCRIPTION DRUG MONITORING REPORT IN PATIENT SPENCER: Not Applicable Prescriptions/Med Rec: amLODIPine [Norvasc] 5 mg PO BEDTIME #30 tab Finasteride 5 mg PO BEDTIME #30 tablet hydroCHLOROthiazide [Hydrochlorothiazide] 25 mg PO DAILY #30 tab Losartan [Cozaar] 25 mg PO DAILY #30 tablet Tamsulosin [Flomax] 0.4 mg PO PCBREAKFAST #30 cap.er Home Medications: Home Meds Cranberry 500 mg PO DAILY 06/02/19 [History] Multivit-Minerals/Herbal 121 [Urinozinc Prostate Formula Cap] 1 tab PO DAILY 01/12 [History] Finasteride 5 mg PO BEDTIME #30 tablet 06/04/19 [Rx] Losartan [Cozaar] 25 mg PO DAILY #30 tablet 06/04/19 [Rx] Tamsulosin [Flomax] 0.4 mg PO PCBREAKFAST #30 cap.er 06/04/19 [Rx] amLODIPine [Norvasc] 5 mg PO BEDTIME #30 tab 06/04/19 [Rx] hydroCHLOROthiazide [Hydrochlorothiazide] 25 mg PO DAILY #30 tab 06/04/19 [Rx] Oxygen Therapy Mode: Room Air Patient Handouts: Acute Kidney Injury, Adult, Indwelling Urinary Catheter Care , Adult, Benign Prostatic Hyperplasia, Acute Urinary Retention, Male, Easy-to- Read Referrals: Fred Smith Jr, MD [Ordering Only Provider] - 06/09/19 9:00 am (please attend the scheduled follow up appointment with Uri Smith as previously scheduled-we added a hospital follow up onto this appointment as previously was scheduled.) - Discharge Summary/Plan Comment DC Time >30 min.: Yes (45 mins ) - General Info Date of Service: 06/04/19 Admission Dx/Problem (Free Text: Admission Diagnosis/Problem Admission Diagnosis/Problem Acute renal injury due to hypovolemia Functional Status: Reports: Pain Controlled, Tolerating Diet, Ambulating, Urinating, Incentive Spirometry. Denies: New Symptoms - Review of Systems General: Reports: No Symptoms. Denies: Fever, Weakness, Fatigue, Malaise, Chills HEENT: Reports: No Symptoms. Denies: Headaches, Sore Throat Pulmonary: Reports: No Symptoms. Denies: Shortness of Breath, Pleuritic Chest Pain, Cough, Sputum, Hemoptysis, Wheezing Cardiovascular: Reports: No Symptoms. Denies: Chest Pain, Palpitations, Dyspnea on Exertion, Edema Gastrointestinal: Reports: No Symptoms. Denies: Abdominal Pain, Constipation, Diarrhea, Nausea, Vomiting Genitourinary: Reports: No Symptoms. Denies: Pain Musculoskeletal: Reports: No Symptoms Skin: Reports: No Symptoms. Denies: Cyanosis Neurological: Reports: No Symptoms. Denies: Confusion, Pre-Existing Deficit, Trouble Speaking, Difficulty Walking, Gait Disturbance Psychiatric: Reports: No Symptoms - Patient Data Vitals - Most Recent: Last Vital Signs Temp 98.1 F 06/04/19 03:26 Pulse 86 06/04/19 03:26 Resp 16 06/04/19 03:26 BP 128/78 06/04/19 03:26 Pulse Ox 94 L 06/04/19 03:26 Weight - Most Recent: 166 lb 3.2 oz I&O - Last 24 hours: Intake & Output 06/03/19 06/04/19 06/04/19 22:59 06:59 14:59 Intake Total 2523 699 Output Total 1100 1200 Balance 1423 -456 Lab Results - Last 24 hrs: Laboratory Results - last 24 hr 06/02/19 06/02/19 06/03/19 Range/Units 22:00 22:00 06:10 WBC (4.23-9.07) K/mm3 RBC (4.63-6.08) M/mm3 Hgb (13.7-17.5) gm/dl Hct (40.1-51.0) % MCV (79.0-92.2) fl MCH (25.7-32.2) pg MCHC (32.2-35.5) g/dl RDW Std Deviation (35.1-43.9) fL Plt Count (163-337) K/mm3 MPV (9.4-12.3) fl Neut % (Auto) (34.0-67.9) % Lymph % (Auto) (21.8-53.1) % [place] % (Auto) (5.3-12.2) % Eos % (Auto) (0.8-7.0) Baso % (Auto) (0.1-1.2) % Neut # (Auto) (1.78-5.38) K/mm3 Lymph # (Auto) (1.32-3.57) K/mm3 [place] # (Auto) (0.30-0.82) K/mm3 Eos # (Auto) (0.04-0.54) K/mm3 Baso # (Auto) (0.01-0.08) K/mm3 Manual Slide Review Abnormal smear Sodium (136-145) mEq/L Potassium (3.5-5.1) mEq/L Chloride (98-107) mEq/L Carbon Dioxide (21-32) mEq/L Anion Gap (5-15) BUN (7-18) mg/dL Creatinine (0.7-1.3) mg/dL Est Cr Clr Drug Dosing mL/min Estimated GFR (MDRD) (>60) mL/min BUN/Creatinine Ratio (14-18) Glucose (83-115) mg/dL Calcium (8.5-10.1) mg/dL Phosphorus (2.6-4.7) mg/dL Magnesium (1.8-2.4) mg/dl Total Bilirubin (0.2-1.0) mg/dL AST (15-37) U/L ALT (16-63) U/L Alkaline Phosphatase (46-116) U/L Total Protein (6.4-8.2) g/dl Albumin (3.4-5.0) g/dl Globulin gm/dL Albumin/Globulin Ratio (1-2) Ur Uric Acid Concent 46.0 mg/dL Ur Urea Nitrogen Conc 1083 mg/dL 06/04/19 06/04/19 Range/Units 05:17 05:17 WBC 8.56 (4.23-9.07) K/mm3 RBC 3.58 L (4.63-6.08) M/mm3 Hgb 10.9 L (13.7-17.5) gm/dl Hct 33.6 L (40.1-51.0) % MCV 93.9 H (79.0-92.2) fl MCH 30.4 (25.7-32.2) pg MCHC 32.4 (32.2-35.5) g/dl RDW Std Deviation 42.2 (35.1-43.9) fL Plt Count 275 (163-337) K/mm3 MPV 10.0 (9.4-12.3) fl Neut % (Auto) 69.0 H (34.0-67.9) % Lymph % (Auto) 13.7 L (21.8-53.1) % [place] % (Auto) 12.6 H (5.3-12.2) % Eos % (Auto) 3.2 (0.8-7.0) Baso % (Auto) 0.4 (0.1-1.2) % Neut # (Auto) 5.92 H (1.78-5.38) K/mm3 Lymph # (Auto) 1.17 L (1.32-3.57) K/mm3 [place] # (Auto) 1.08 H (0.30-0.82) K/mm3 Eos # (Auto) 0.27 (0.04-0.54) K/mm3 Baso # (Auto) 0.03 (0.01-0.08) K/mm3 Manual Slide Review Sodium 142 (136-145) mEq/L Potassium 4.2 (3.5-5.1) mEq/L Chloride 109 H (98-107) mEq/L Carbon Dioxide 22 (21-32) mEq/L Anion Gap 15.2 H (5-15) BUN 20 H (7-18) mg/dL Creatinine 1.6 H (0.7-1.3) mg/dL Est Cr Clr Drug Dosing 43.09 mL/min Estimated GFR (MDRD) 43 (>60) mL/min BUN/Creatinine Ratio 12.5 L (14-18) Glucose 103 (83-115) mg/dL Calcium 8.6 (8.5-10.1) mg/dL Phosphorus 2.6 (2.6-4.7) mg/dL Magnesium 1.9 (1.8-2.4) mg/dl Total Bilirubin 0.5 (0.2-1.0) mg/dL AST 16 (15-37) U/L ALT 32 (16-63) U/L Alkaline Phosphatase 63 (46-116) U/L Total Protein 5.8 L (6.4-8.2) g/dl Albumin 2.5 L (3.4-5.0) g/dl Globulin 3.3 gm/dL Albumin/Globulin Ratio 0.8 L (1-2) Ur Uric Acid Concent mg/dL Ur Urea Nitrogen Conc mg/dL LOVE Results - Last 24 hrs: Microbiology 06/02/19 12:18 Quick Strep Confirmation Culture - Preliminary Throat Group A Streptococcus Rapid Screen - Final NEGATIVE STREP A SCREEN REFERENCE RANGE: NEGATIVE Med Orders - Current: Current Medications Acetaminophen (Tylenol) 650 mg PO Q4H PRN PRN Reason: Pain (Mild 1-3)/fever Last Admin: 06/03/19 05:55 Dose: 650 mg Hydrocodone Bitart/Acetaminophen (Cedar 325-5 Mg) 1 tab PO Q4H PRN PRN Reason: Pain (moderate 4-6) Albuterol/Ipratropium (Duoneb 3.0-0.5 Mg/3 Ml) 3 ml NEB Q4H PRN PRN Reason: Shortness Of Breath/wheezing Amlodipine Besylate (Norvasc) 10 mg PO BEDTIME NU Last Admin: 06/03/19 20:38 Dose: 10 mg Bisacodyl (Dulcolax) 5 mg PO DAILY PRN PRN Reason: Constipation Calcium Carbonate/Glycine (Tums) 500 mg PO Q2H PRN PRN Reason: Indigestion Last Admin: 06/03/19 10:01 Dose: 500 mg Docusate Sodium (Colace) 100 mg PO BID PRN PRN Reason: Constipation Famotidine (Pepcid) 20 mg PO BID [facility] Last Admin: 06/03/19 20:39 Dose: 20 mg Finasteride (Proscar) 5 mg PO BEDTIME [facility] Last Admin: 06/03/19 20:34 Dose: 5 mg Hydrochlorothiazide (Hydrochlorothiazide) 12.5 mg PO BEDTIME [facility] Stop: 06/04/19 21:01 Last Admin: 06/03/19 20:37 Dose: 12.5 mg Hydromorphone HCl (Dilaudid) 0.25 mg IVPUSH Q2H PRN PRN Reason: Pain (severe 7-10) Promethazine HCl 6.25 mg/ (Sodium Chloride) 50.25 mls @ 100 mls/hr IV Q6H PRN PRN Reason: Nausea/Vomiting Sodium Chloride (Normal Saline) 1,000 mls @ 25 mls/hr IV ASDIRECTED [facility] Last Admin: 06/03/19 23:54 Dose: 25 mls/hr Losartan Potassium (Cozaar) 25 mg PO DAILY [facility] Ondansetron HCl (Zofran) 4 mg IV Q6H PRN PRN Reason: Nausea/Vomiting Senna/Docusate Sodium (Senna Plus) 1 tab PO BID PRN PRN Reason: Constipation Tamsulosin HCl (Flomax) 0.4 mg PO PCBREAKFAST [facility] Last Admin: 06/03/19 10:03 Dose: 0.4 mg Temazepam (Restoril) 15 mg PO BEDTIME PRN PRN Reason: Sleep Discontinued Medications Amlodipine Besylate (Norvasc) 5 mg PO ONETIME ONE Stop: 06/02/19 17:01 Last Admin: 06/02/19 18:12 Dose: Not Given Clonidine HCl (Catapres) 0.1 mg PO ONETIME ONE Stop: 06/02/19 17:01 Last Admin: 06/02/19 17:10 Dose: 0.1 mg Clonidine HCl (Catapres) 0.1 mg PO DAILY [facility] Stop: 06/03/19 09:01 Last Admin: 06/03/19 08:15 Dose: 0.1 mg Famotidine (Pepcid) 20 mg IVPUSH ONETIME ONE Stop: 06/03/19 11:01 Last Admin: 06/03/19 13:54 Dose: Not Given Famotidine (Pepcid) 20 mg PO ONETIME ONE Stop: 06/03/19 13:46 Last Admin: 06/03/19 13:55 Dose: 20 mg Hydralazine HCl (Apresoline) 20 mg IV ONETIME ONE Stop: 06/02/19 15:46 Last Admin: 06/02/19 15:49 Dose: 20 mg Lactated Ringer's (Ringers, Lactated) 1,000 mls @ 999 mls/hr IV .BOLUS ONE Stop: 06/02/19 14:26 Last Admin: 06/02/19 13:54 Dose: 999 mls/hr Sodium Chloride (Normal Saline) 1,000 mls @ 125 mls/hr IV ASDIRECTED [facility] Last Admin: 06/03/19 10:01 Dose: 125 mls/hr Lorazepam (Ativan) 0.5 mg IVPUSH ONETIME ONE Stop: 06/02/19 21:01 Losartan Potassium (Cozaar) 12.5 mg PO DAILY [facility] Stop: 06/03/19 21:01 Last Admin: 06/03/19 20:35 Dose: 12.5 mg Pantoprazole Sodium (Protonix Iv) 40 mg IVPUSH ONETIME ONE Stop: 06/03/19 11:01 Last Admin: 06/03/19 13:54 Dose: Not Given Pantoprazole Sodium (Protonix Iv) 40 mg IVPUSH ONETIME ONE Stop: 06/03/19 13:46 Last Admin: 06/03/19 13:55 Dose: 40 mg Tamsulosin HCl (Flomax) 0.4 mg PO ONETIME ONE Stop: 06/02/19 11:59 Last Admin: 06/02/19 12:13 Dose: 0.4 mg - Exam Quality Assessment: Reports: Urine Catheter, DVT Prophylaxis General: Reports: Alert, Oriented, Cooperative, No Acute Distress HEENT: Reports: Pupils Equal, Pupils Reactive, Mucous Membr. Moist/[place] Neck: Reports: Supple, Trachea Midline Lungs: Reports: Clear to Auscultation, Normal Respiratory Effort Cardiovascular: Reports: Regular Rate, Regular Rhythm GI/Abdominal Exam: Normal Bowel Sounds, Soft, Non-Tender, No Organomegaly (Male) Exam: Deferred Rectal (Males) Exam: Deferred Back Exam: Reports: Normal Inspection, Full Range of Motion Extremities: Normal Inspection, Normal Range of Motion, Non-Tender, No Pedal Edema, Normal Capillary Refill Skin: Reports: Warm, Dry, Intact Neurological: Reports: No New Focal Deficit Psy/Mental Status: Reports: Alert, Normal Affect, Normal Mood
[2019-06-04] MEDS ORDERED: Losartan 25 MG Tab PO SCH (09:00)
[2019-06-04] MEDS: Famotidine 20 MG Tab PO SCH (09:21)
[2019-06-04] MEDS: Tamsulosin 0.4 MG Cap.ER PO SCH (09:21)
== END 2019-06-04 11:45 | disposition home or self-care (01) | DRG 684 ==
LOC: JD.ED 10:56 → JD.MS 14:15
PROVIDERS: ADMIT Internal Medicine; ATTEND Internal Medicine
DX: N17.9 Acute kidney failure, unspecified (principal); N13.9 Obstructive and reflux uropathy, unspecified; N32.0 Bladder-neck obstruction; K21.9 Gastro-esophageal reflux disease without esophagitis; F41.9 Anxiety disorder, unspecified; R33.9 Retention of urine, unspecified; I10 Essential (primary) hypertension; R73.9 Hyperglycemia, unspecified; J02.9 Acute pharyngitis, unspecified; Z79.899 Other long term (current) drug therapy; D72.829 Elevated white blood cell count, unspecified
CPT/HCPCS: 36415; 51702; 51798; 80053; 81001; 82570; 84300; 85007; 85027; 87081; 87430; 99284; A9270; J7120; 76770; 76770-26; 80048; 83497; 83735; 84100; 84540; 84560; 85025; 99222; 99232; 99239; 99282; C9113; J0360; J7030

== ENCOUNTER 2019-06-07 03:23 | Emergency (ER) | payer MEDICARE, SELFPAY ==
--- NOTE | 2019-06-07 03:55 | EDM.PDOC ---
ED HPI GENERAL MEDICAL PROBLEM - General Chief Complaint: Genitourinary Problem Stated Complaint: BLOOD IN CATH Time Seen by Provider: 06/07/19 03:33 Source of Information: Reports: Patient, Family () History Limitations: Reports: No Limitations - History of Present Illness INITIAL COMMENTS - FREE TEXT/NARRATIVE: Mr. Franklin is a very pleasant 74-year-old man with a past medical history significant for BPH, who was admitted to this hospital from 06/02/2019 through 02/2020 secondary to urinary obstruction acute kidney injury. An indwelling Tran catheter was placed, and he was started on Flomax. The patient now presents to the ED stating that his leg bag was leaking yesterday, 06/06/2019, and he noticed a small amount of blood in the bag. He otherwise felt well. He then woke around 02:45 this morning with sharp suprapubic abdominal pain lasted only for 1 to 2 seconds. He then found jesus blood in his leg bag. The patient states that he has been compliant with his medications. The patient will be establishing Dr. Fred Smith as a PCP on Friday, 2019. - Related Data Allergies Allergy/AdvReac Type Severity Reaction Status Date / Time No Known Allergies Allergy Verified 06/07/19 03:31 Home Meds: Home Meds Cranberry 500 mg PO DAILY 06/02/19 [History] Multivit-Minerals/Herbal 121 [Urinozinc Prostate Formula Cap] 1 tab PO DAILY 01/12 [History] Finasteride 5 mg PO BEDTIME #30 tablet 06/04/19 [Rx] Losartan [Cozaar] 25 mg PO DAILY #30 tablet 06/04/19 [Rx] Tamsulosin [Flomax] 0.4 mg PO PCBREAKFAST #30 cap.er 06/04/19 [Rx] amLODIPine [Norvasc] 5 mg PO BEDTIME #30 tab 06/04/19 [Rx] hydroCHLOROthiazide [Hydrochlorothiazide] 25 mg PO DAILY #30 tab 06/04/19 [Rx] Past Medical History HEENT History: Reports: Allergic Rhinitis Cardiovascular History: Reports: Hypertension Genitourinary History: Reports: BPH - Infectious Disease History Infectious Disease History: Reports: Measles, Mumps Social & Family History - Family History Family Medical History: Noncontributory - Tobacco Use Smoking Status *Q: Former Smoker Years of Tobacco use: 52 Packs/Tins Daily: 1 Month/Year Tobacco Last Used: Quit 1999 - Caffeine Use Caffeine Use: Reports: Coffee, Soda - Alcohol Use Alcohol Use History: Yes Alcohol Use Frequency: Socially - Recreational Drug Use Recreational Drug Use: No - Living Situation & Occupation Living situation: Reports: , with Spouse Occupation: Retired ED ROS GENERAL - Review of Systems Review Of Systems: Comprehensive ROS is negative, except as noted in HPI. ED EXAM, RENAL/ - Physical Exam Exam: See Below Exam Limited By: No Limitations General Appearance: Alert, WD/WN, No Apparent Distress Eye Exam: Bilateral Eye: EOMI, Normal Inspection Ears: Normal External Exam, Hearing Grossly Normal Nose: Normal Inspection Throat/Mouth: Normal Inspection, Normal Lips, Normal Voice, No Airway Compromise Head: Atraumatic, Normocephalic Neck: Normal Inspection, Full Range of Motion Respiratory/Chest: No Respiratory Distress, Lungs Clear, Normal Breath Sounds, No Accessory Muscle Use Cardiovascular: Normal Peripheral Pulses, Regular Rate, Rhythm, No Edema, No Gallop, No JVD, No Murmur, No Rub GI/Abdominal: Normal Bowel Sounds, Soft, No Organomegaly, No Distention, No Abnormal Bruit, No Mass, Tender (minimal, suprapubic only. Nontender elsewhere.) (Male) Exam: Deferred Rectal (Males) Exam: Deferred Back Exam: Normal Inspection, Full Range of Motion. No: CVA Tenderness (L), CVA Tenderness (R) Extremities: Normal Inspection, Normal Range of Motion, No Pedal Edema, Normal Capillary Refill Neurological: Alert, Oriented, Normal Cognition, No Motor/Sensory Deficits Psychiatric: Normal Affect Skin Exam: Warm, Dry, Intact, Normal Color, No Rash Course - Vital Signs Last Recorded V/S: Last Vital Signs Temp 37.3 C 06/07/19 03:30 Pulse 105 H 06/07/19 03:30 Resp 16 06/07/19 03:30 BP 173/74 H 06/07/19 03:30 Pulse Ox 96 06/07/19 03:30 - Re-Assessments/Exams Free Text/Narrative Re-Assessment/Exam: 06/07/19 03:49 The patient likely unknowingly pulled on his Tran catheter while he was sleeping, causing some proximal urethral injury and bleeding. While bloody, the urine appears to be flowing well. Serafin RN is going to irrigate the catheter, but we do not intend to change it. We will send a urine sample for culture. Departure - Departure Time of Disposition: 03:50 Disposition: Home, Self-Care 01 Condition: Good Clinical Impression: Gross hematuria - Discharge Information *PRESCRIPTION DRUG MONITORING PROGRAM REVIEWED*: Not Applicable *COPY OF PRESCRIPTION DRUG MONITORING REPORT IN PATIENT SPENCER: Not Applicable Instructions: Hematuria, Adult Referrals: Fred Smith Jr, MD [Primary Care Provider] - Forms: ED Department Discharge Additional Instructions: You were seen in the emergency room after experiencing brief pain in your lower abdomen, followed by blood in your Tran catheter. Based on your history and physical examination, you likely inadvertently pulled on your Tran catheter while you were sleeping, causing some urethral damage and bleeding. Your catheter was irrigated, and appears to be flowing properly. Continue to maintain your Tran catheter as you have been. Be sure that your leg bag is below the height of your body when you sleep, so that urine does not back flow into your bladder. Follow-up with Dr. Fred Smith at your previously scheduled appointment this coming 06/09/2019. If any other problems, please do not hesitate to return to the ER. Sepsis Event Note - Evaluation Sepsis Screening Result: No Definite Risk - Focused Exam Date Exam was Performed: 06/09/19 Time Exam was Performed: 08:31
[2019-06-29] MEDS ORDERED: Adenosine 12 MG/4 ML SDV ONE (11:55)
== END 2019-06-07 05:15 | disposition home or self-care (01) ==
LOC: JD.ED 03:23
DX: R31.0 Gross hematuria (principal); I10 Essential (primary) hypertension; Z79.899 Other long term (current) drug therapy; Z87.891 Personal history of nicotine dependence
CPT/HCPCS: 51700; 87086; 87088; 87186; 99282; 99283-25

== ENCOUNTER 2019-06-14 14:23 | Emergency (ER) | payer MEDICARE ==
[2019-06-14] MEDS ORDERED: Lidocaine 2% Jelly 10 ML Urojet MUCMEM ONE (14:28)
[2019-06-14] MEDS ORDERED: Levofloxacin 250 MG Tab PO ONE (14:48)
--- NOTE | 2019-06-14 15:02 | EDM.PDOC ---
ED HPI GENERAL MEDICAL PROBLEM - General Chief Complaint: Genitourinary Problem Stated Complaint: UNABLE TO URINATE AFTER CATHETER REMOVAL Time Seen by Provider: 06/14/19 14:50 Source of Information: Reports: Patient, Family (friend), RN Notes Reviewed History Limitations: Reports: No Limitations - History of Present Illness INITIAL COMMENTS - FREE TEXT/NARRATIVE: 74-year-old male presents to the ED with inability to void since catheter removal at 0830 hrs. this morning. Patient reports that he's had a catheter all month of May. He went into urinary retention at that time. Unclear if he 's had renal function studies done. He is being followed by Dr. Smith. His is new for him as he has not seen a doctor for greater than 30 years. Bladder scan done in the emergency department was 824 mils. New Tran will be placed. Onset: Today Onset Date: 06/14/19 (Catheter was removed and 0830 hrs. this morning and he has not been able to void since.) Duration: Hour(s): Location: Reports: Abdomen Quality: Reports: Ache (Suprapubic abdomen rating into his back) Severity: Moderate Improves with: Reports: None Worsens with: Reports: Other (Worsens since having) Context: Denies: Activity, Exercise ( catheter removed earlier this morning has not been able to void at all.), Lifting, Sick Contact, Trauma, Other Associated Symptoms: Reports: Cough, Loss of Appetite, Malaise. Denies: No Other Symptoms, Confusion, Chest Pain, cough w sputum, Diaphoresis, Fever/Chills , Headaches, Nausea/Vomiting, Rash, Seizure, Syncope Bladder Pain Score (Numeric/FACES): 8 - Related Data Allergies Allergy/AdvReac Type Severity Reaction Status Date / Time No Known Allergies Allergy Verified 06/14/19 14:40 Home Meds: Home Meds Cranberry 500 mg PO DAILY 06/02/19 [History] Multivit-Minerals/Herbal 121 [Urinozinc Prostate Formula Cap] 1 tab PO DAILY 01/12 [History] Finasteride 5 mg PO BEDTIME #30 tablet 06/04/19 [Rx] Losartan [Cozaar] 25 mg PO DAILY #30 tablet 06/04/19 [Rx] Tamsulosin [Flomax] 0.4 mg PO PCBREAKFAST #30 cap.er 06/04/19 [Rx] amLODIPine [Norvasc] 5 mg PO BEDTIME #30 tab 06/04/19 [Rx] hydroCHLOROthiazide [Hydrochlorothiazide] 25 mg PO DAILY #30 tab 06/04/19 [Rx] levoFLOXacin [Levaquin] 250 mg PO DAILY #7 tab 06/14/19 [Rx] Past Medical History - Past Health History Medical/Surgical History: Denies Medical/Surgical History HEENT History: Reports: Allergic Rhinitis Other HEENT History: allergies Cardiovascular History: Reports: Hypertension Gastrointestinal History: Reports: GERD Genitourinary History: Reports: BPH Other Genitourinary History: seems to happen after he was drinking Psychiatric History: Reports: Anxiety Other Psychiatric History: no formally diagnosed - Infectious Disease History Infectious Disease History: Reports: Measles, Mumps - Past Surgical History HEENT Surgical History: Reports: None Social & Family History - Family History Family Medical History: Noncontributory - Tobacco Use Smoking Status *Q: Never Smoker - Caffeine Use Caffeine Use: Reports: Coffee, Soda - Recreational Drug Use Recreational Drug Use: No - Living Situation & Occupation Living situation: Reports: , with Spouse Occupation: Retired ED ROS GENERAL - Review of Systems Review Of Systems: See Below Constitutional: Reports: Malaise, Weakness, Fatigue. Denies: Fever, Chills HEENT: Reports: Glasses Respiratory: Denies: Shortness of Breath, Wheezing, Pleuritic Chest Pain, Cough , Sputum Cardiovascular: Reports: Dyspnea on Exertion Endocrine: Reports: Fatigue GI/Abdominal: Reports: Abdominal Pain, Constipation (See history present illness. Occasional problems with constipation) : Reports: Urinary Retention (2 urinary retention since early in the month.), Other (Nocturia 4 or 5. He was admitted to hospital on June 02 with acute urinary obstruction with evidence of renal insufficiency due to obstructive uropathy. He remained in hospital for 2 days to make sure he did not develop postobstructive diuresis. He is been discharged with a Tran catheter in place since that time. He had been instructed to follow-up with urology services but never made an appointment. The first day the catheter was removed) Musculoskeletal: Reports: Back Pain, Joint Pain Skin: Reports: No Symptoms (EScription neck and shoulders at times.) Neurological: Reports: No Symptoms Psychiatric: Reports: No Symptoms Hematologic/Lymphatic: Reports: No Symptoms Immunologic: Reports: No Symptoms ED EXAM, GI/ABD - Physical Exam Exam: See Below Exam Limited By: No Limitations General Appearance: Alert, Moderate Distress Eyes: Bilateral: Normal Appearance Throat/Mouth: Normal Inspection, Normal Lips, Normal Oropharynx (No sclerae icterus or pallor.) Head: Atraumatic, Normocephalic Neck: Normal Inspection, Supple, Limited Range of Motion. No: Full Range of Motion, Carotid Bruit, Lymphadenopathy (L), Lymphadenopathy (R) Respiratory/Chest: No Respiratory Distress, Lungs Clear, Normal Breath Sounds, No Accessory Muscle Use, Chest Non-Tender Cardiovascular: Regular Rate, Rhythm, No Edema, No Gallop, No Murmur, No Rub. No: Normal Peripheral Pulses GI/Abdominal Exam: No Organomegaly, Distended (Bowel sounds are absent in all 4 quadrants. An incidental to percussion up to the umbilicus from the pubic symphysis with firmness in this area compatible with a full urinary bladder. Bladder scan reveals 824 mils of urine in the bladder.), Abnormal Bowel Sounds Back Exam: Normal Inspection, Full Range of Motion. 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.) , CN II-XII Intact, Normal Cognition Psychiatric: Normal Affect, Normal Mood Skin Exam: Warm, Dry, Intact, Normal Color, No Rash Course - Vital Signs Last Recorded V/S: Last Vital Signs Temp 37.1 C 06/14/19 14:38 Pulse 97 06/14/19 14:38 Resp 16 06/14/19 14:38 BP 173/100 H 06/14/19 14:38 Pulse Ox 99 06/14/19 14:38 - Orders/Labs/Meds Orders: Active Orders 24 hr Category Date Time Status Insert Tran Catheter [Insert Urinary Catheter] [OM.PC] Care 06/14/19 15:15 Ordered Q24H Urinary Catheter Assessment [RC] ASDIRECTED Care 06/14/19 15:09 Active CULTURE URINE [RM] Stat Lab 06/14/19 14:50 Received Labs: Laboratory Tests 06/14/19 06/14/19 06/14/19 Range/Units 14:50 15:55 15:55 WBC 14.51 H (4.23-9.07) K/mm3 RBC 3.99 L (4.63-6.08) M/mm3 Hgb 11.9 L (13.7-17.5) gm/dl Hct 36.8 L (40.1-51.0) % MCV 92.2 (79.0-92.2) fl MCH 29.8 (25.7-32.2) pg MCHC 32.3 (32.2-35.5) g/dl RDW Std Deviation 40.5 (35.1-43.9) fL Plt Count 409 H D (163-337) K/mm3 MPV 8.6 L (9.4-12.3) fl Neut % (Auto) 87.5 H (34.0-67.9) % Lymph % (Auto) 6.5 L (21.8-53.1) % [place] % (Auto) 5.2 L (5.3-12.2) % Eos % (Auto) 0.3 L (0.8-7.0) Baso % (Auto) 0.1 (0.1-1.2) % Neut # (Auto) 12.69 H (1.78-5.38) K/mm3 Lymph # (Auto) 0.95 L (1.32-3.57) K/mm3 [place] # (Auto) 0.75 (0.30-0.82) K/mm3 Eos # (Auto) 0.04 (0.04-0.54) K/mm3 Baso # (Auto) 0.02 (0.01-0.08) K/mm3 Manual Slide Review Abnormal smear Sodium 135 L (136-145) mEq/L Potassium 3.4 L (3.5-5.1) mEq/L Chloride 98 (98-107) mEq/L Carbon Dioxide 25 (21-32) mEq/L Anion Gap 15.4 H (5-15) BUN 22 H (7-18) mg/dL Creatinine 1.4 H (0.7-1.3) mg/dL Est Cr Clr Drug Dosing 46.14 mL/min Estimated GFR (MDRD) 50 (>60) mL/min BUN/Creatinine Ratio 15.7 (14-18) Glucose 106 (83-115) mg/dL Calcium 9.3 (8.5-10.1) mg/dL Total Bilirubin 0.9 (0.2-1.0) mg/dL AST 12 L (15-37) U/L ALT 29 (16-63) U/L Alkaline Phosphatase 81 (46-116) U/L C-Reactive Protein 0.8 (<1.0) mg/dL Total Protein 6.8 (6.4-8.2) g/dl Albumin 3.1 L (3.4-5.0) g/dl Globulin 3.7 gm/dL Albumin/Globulin Ratio 0.8 L (1-2) PSA Screen (0.0-4.0) ng/mL Urine Color Light yellow (Yellow) Urine Appearance Slt cloudy H (Clear) Urine pH 6.5 (5.0-8.0) Ur Specific [place] 1.015 (1.005-1.030) Urine Protein 1+ H (Negative) Urine Glucose (UA) Negative (Negative) Urine Ketones Negative (Negative) Urine Occult Blood 2+ H (Negative) Urine Nitrite Negative (Negative) Urine Bilirubin Negative (Negative) Urine Urobilinogen 0.2 (0.2-1.0) Ur Leukocyte Esterase 3+ H (Negative) Urine RBC 5-10 H (0-5) /hpf Urine WBC 50-75 H (0-5) /hpf Urine WBC Clumps Occasional (NOT SEEN) /hpf Ur Squamous Epith Cells 0-5 (0-5) /hpf Urine Bacteria Moderate H (FEW) /hpf Urine Mucus Not seen (FEW) /hpf 06/14/19 Range/Units 15:55 WBC (4.23-9.07) K/mm3 RBC (4.63-6.08) M/mm3 Hgb (13.7-17.5) gm/dl Hct (40.1-51.0) % MCV (79.0-92.2) fl MCH (25.7-32.2) pg MCHC (32.2-35.5) g/dl RDW Std Deviation (35.1-43.9) fL Plt Count (163-337) K/mm3 MPV (9.4-12.3) fl Neut % (Auto) (34.0-67.9) % Lymph % (Auto) (21.8-53.1) % [place] % (Auto) (5.3-12.2) % Eos % (Auto) (0.8-7.0) Baso % (Auto) (0.1-1.2) % Neut # (Auto) (1.78-5.38) K/mm3 Lymph # (Auto) (1.32-3.57) K/mm3 [place] # (Auto) (0.30-0.82) K/mm3 Eos # (Auto) (0.04-0.54) K/mm3 Baso # (Auto) (0.01-0.08) K/mm3 Manual Slide Review Sodium (136-145) mEq/L Potassium (3.5-5.1) mEq/L Chloride (98-107) mEq/L Carbon Dioxide (21-32) mEq/L Anion Gap (5-15) BUN (7-18) mg/dL Creatinine (0.7-1.3) mg/dL Est Cr Clr Drug Dosing mL/min Estimated GFR (MDRD) (>60) mL/min BUN/Creatinine Ratio (14-18) Glucose (83-115) mg/dL Calcium (8.5-10.1) mg/dL Total Bilirubin (0.2-1.0) mg/dL AST (15-37) U/L ALT (16-63) U/L Alkaline Phosphatase (46-116) U/L C-Reactive Protein (<1.0) mg/dL Total Protein (6.4-8.2) g/dl Albumin (3.4-5.0) g/dl Globulin gm/dL Albumin/Globulin Ratio (1-2) PSA Screen 22.6 H (0.0-4.0) ng/mL Urine Color (Yellow) Urine Appearance (Clear) Urine pH (5.0-8.0) Ur Specific [place] (1.005-1.030) Urine Protein (Negative) Urine Glucose (UA) (Negative) Urine Ketones (Negative) Urine Occult Blood (Negative) Urine Nitrite (Negative) Urine Bilirubin (Negative) Urine Urobilinogen (0.2-1.0) Ur Leukocyte Esterase (Negative) Urine RBC (0-5) /hpf Urine WBC (0-5) /hpf Urine WBC Clumps (NOT SEEN) /hpf Ur Squamous Epith Cells (0-5) /hpf Urine Bacteria (FEW) /hpf Urine Mucus (FEW) /hpf Meds: Medications Discontinued Medications Generic Name Dose Route Start Last Admin Trade Name Freq PRN Reason Stop Dose Admin Levofloxacin 500 mg 06/14/19 14:48 06/14/19 14:53 Levaquin PO 06/14/19 14:49 500 mg ONETIME ONE Administration Lidocaine HCl 10 ml 06/14/19 14:28 06/14/19 14:44 Xylocaine 2% Jelly MUCMEM 06/14/19 14:29 10 ml ONETIME ONE Administration - Radiology Interpretation Free Text/Narrative:: 74-year-old male presents to the ED with acute recurrent urinary retention. Patient had initial Tran catheter placed on June 02 when he presented to the ED with acute urinary retention. He was hospitalized for 2 days due to renal insufficiency with elevated creatinine and this was felt to be due to postobstructive uropathy. He was kept in hospital for 48 hours to make sure that he did not develop postobstructive diuresis. He was discharged home on the of this month. He presented to his family doctor Dr. Smith today to have the catheter removed this morning and since then he's been unable to void and his develop significant suprapubic abdominal pain. Bladder scan reveals 824 mils in his urinary bladder and clinical exam shows the bladder is distended up to the umbilicus and dull to percussion from the pubic symphysis to the umbilicus. Plan he will be given Levaquin 500 mg by mouth due to catheter change out. A new Tran catheter will be placed. Urinalysis to be sent. I did phone [facility] u[facility] services and the earliest appointment I could get for him was July 28 at 3 PM which is to PMR time. - Re-Assessments/Exams Free Text/Narrative Re-Assessment/Exam: 06/14/19 15:41 Urinalysis is slightly cloudy. It shows 1+ proteinuria 2+: Blood. He does reveal 3+ leukocyte esterase and 5-10 rbc's per high power field and 50-75 white blood cells per high power field. . Moderate bacteria appreciated. Urine culture will be ordered. Patient given Levaquin 500 mg by mouth now and will be discharged on 250 mg once daily for another 7 days. 06/14/19 16:20: Patient drained a total of 1250 mils of urine from his bladder after catheterization.White count was mildly elevated at 14.51 with 87.5% neutrophils. Abdomen is 11.9 with hematocrit of 36.8. MCV is 92.2. Pelvic on elevated at 409,000. The slide did not show any band cells. Sodium 135 with potassium slightly low at 3.4. Chloride 98 with a bicarbonate 25. Anion gap is 15.4. B1 is 22 with a creatinine of 1.4. GFR is 50. Glucose is 106. Calcium is 9.3. Total bilirubin is 0.9. AST was 12 with an ALT of 29. Alk phosphatase 81. C -reactive protein was 0.8. Total protein 6.8 abdomen fraction 3.1. PSA is pending 06/14/19 17:59 PSA is markedly elevated at 22.6. This is concerning for cancer of the prostate. Appointment has been arranged with urology services at [facility] on July 28 at 1500 hrs. their time in 1400 hrs. are time. Was given this appointment time in the ED. Departure - Departure Time of Disposition: 15:46 Disposition: Home, Self-Care 01 Condition: Fair Clinical Impression: Enlarged prostate with urinary retention Urinary tract infection associated with catheterization of urinary tract Qualifiers: Indwelling urinary catheter type: indwelling urethral catheter Encounter type: initial encounter Qualified Code(s): T83.511A - Infection and inflammatory reaction due to indwelling urethral catheter, initial encounter - Discharge Information *PRESCRIPTION DRUG MONITORING PROGRAM REVIEWED*: Not Applicable *COPY OF PRESCRIPTION DRUG MONITORING REPORT IN PATIENT SPENCER: Not Applicable Prescriptions: levoFLOXacin [Levaquin] 250 mg PO DAILY #7 tab Instructions: Indwelling Urinary Catheter Care, Adult, Benign Prostatic Hyperplasia Referrals: Fred Smith Jr, MD [Primary Care Provider] - Forms: ED Department Discharge Additional Instructions: Evaluation the emergency room today in regards to inability to pass her water since the Tran catheter was removed at 8:30 this morning. Based on June 02 and he remained in hospital for 2 days due to elevated kidney function felt to be due to obstruction from the bladder not being able to empty completely. Unfortunately you are unable to pass her water again after the catheter was removed and a new Tran catheter was placed in the emergency department. This will have to remain in place until you can follow-up with urology services in [place]. Urine test done today does show some degree of infection and you received a dose of antibiotic Levaquin 500 mg in the emergency department. You need to take similar medicine Levaquin 250 mg once daily for another 7 days to clear this infection up completely. I did make an appointment to see the urologist at [facility] in [facility] and is on July 28 at 3 PM [place] time 2 PM our time.They may call you sooner however to arrange the appointment if possible. Sepsis Event Note - Evaluation Sepsis Screening Result: No Definite Risk - Focused Exam Vital Signs: Vital Signs Temp Pulse Resp BP Pulse Ox 06/14/19 14:38 37.1 C 97 16 173/100 H 99 Date Exam was Performed: 06/14/19 Time Exam was Performed: 17:59 - My Orders Last 24 Hours: My Active Orders 06/14/19 14:50 CULTURE URINE [RM] Stat 06/14/19 15:09 Urinary Catheter Assessment [RC] ASDIRECTED 06/14/19 15:15 Insert Tran Catheter [Insert Urinary Catheter] [OM.PC] Q24H - Assessment/Plan Last 24 Hours: My Active Orders 06/14/19 14:50 CULTURE URINE [RM] Stat 06/14/19 15:09 Urinary Catheter Assessment [RC] ASDIRECTED 06/14/19 15:15 Insert Tran Catheter [Insert Urinary Catheter] [OM.PC] Q24H
== END 2019-06-14 16:11 | disposition home or self-care (01) ==
LOC: JD.ED 14:23
DX: T83.511A Infection and inflammatory reaction due to indwelling urethral catheter, initial encounter (principal); N40.1 Benign prostatic hyperplasia with lower urinary tract symptoms; R33.8 Other retention of urine; I10 Essential (primary) hypertension; Z79.899 Other long term (current) drug therapy
CPT/HCPCS: 36415; 51702; 51798; 80053; 81001; 85025; 86140; 87086; 87088; 87186; 99284; A9270; G0103; 99283

== ENCOUNTER 2019-08-04 19:25 | Emergency (ER) | payer MEDICARE, OTHER ==
[2019-08-04] MEDS ORDERED: Lidocaine 2% Jelly 10 ML Urojet MUCMEM ONE (20:14)
--- NOTE | 2019-08-04 20:14 | EDM.PDOC ---
ED HPI GENERAL MEDICAL PROBLEM - General Chief Complaint: Genitourinary Problem Stated Complaint: REDO CATH Time Seen by Provider: 08/04/19 19:44 Source of Information: Reports: Patient, RN Notes Reviewed History Limitations: Reports: No Limitations - History of Present Illness INITIAL COMMENTS - FREE TEXT/NARRATIVE: Patient is a 74 year old male who presents to the ED for problems with his plaza catheter. The patient notes that he does have issues with urinary retention, and has had a Plaza catheter in place for roughly 1 month. He states that he did have prostate biopsies done by Dr. Veloz at [facility] in [place] this morning, and he went about his day with little complications. He states that tonight however when he got home from work he felt something odd , in his groin area and checked his catheter and noticed that the catheter had fallen out. The balloon was deflated and the whole catheter was out. Patient was unsure as if the catheter was supposed to go back in or if he could leave it out so he comes to the ER for management. Patient is not complaining of any dysuria, he states that he is not really drink a lot of fluids since the biopsies, so he has not really had to go pee much at all, so cannot state if he is retaining urine or not. - Related Data Allergies Allergy/AdvReac Type Severity Reaction Status Date / Time No Known Allergies Allergy Verified 08/04/19 19:41 Home Meds: Home Meds Cranberry 500 mg PO DAILY 06/02/19 [History] Multivit-Minerals/Herbal 121 [Urinozinc Prostate Formula Cap] 1 tab PO DAILY 01/12 [History] Finasteride 5 mg PO BEDTIME #30 tablet 06/04/19 [Rx] Losartan [Cozaar] 25 mg PO DAILY #30 tablet 06/04/19 [Rx] Tamsulosin [Flomax] 0.4 mg PO PCBREAKFAST #30 cap.er 06/04/19 [Rx] amLODIPine [Norvasc] 5 mg PO BEDTIME #30 tab 06/04/19 [Rx] hydroCHLOROthiazide [Hydrochlorothiazide] 25 mg PO DAILY #30 tab 06/04/19 [Rx] levoFLOXacin [Levaquin] 250 mg PO DAILY #7 tab 06/14/19 [Rx] Past Medical History - Past Health History Medical/Surgical History: Denies Medical/Surgical History HEENT History: Reports: Allergic Rhinitis Other HEENT History: allergies Cardiovascular History: Reports: Hypertension Gastrointestinal History: Reports: GERD Genitourinary History: Reports: BPH Other Genitourinary History: seems to happen after he was drinking Psychiatric History: Reports: Anxiety Other Psychiatric History: no formally diagnosed - Infectious Disease History Infectious Disease History: Reports: Measles, Mumps - Past Surgical History HEENT Surgical History: Reports: None Social & Family History - Family History Family Medical History: Noncontributory - Tobacco Use Smoking Status *Q: Never Smoker - Caffeine Use Caffeine Use: Reports: Coffee - Recreational Drug Use Recreational Drug Use: No - Living Situation & Occupation Living situation: Reports: , with Spouse Occupation: Retired ED ROS GENERAL - Review of Systems Review Of Systems: Comprehensive ROS is negative, except as noted in HPI. ED EXAM, RENAL/ - Physical Exam Exam: See Below Exam Limited By: No Limitations General Appearance: Alert, WD/WN, No Apparent Distress Respiratory/Chest: No Respiratory Distress, Lungs Clear, Normal Breath Sounds, No Accessory Muscle Use, Chest Non-Tender Cardiovascular: Normal Peripheral Pulses, Regular Rate, Rhythm, No Murmur GI/Abdominal: Normal Bowel Sounds, Soft, Non-Tender, No Distention, No Mass (Male) Exam: Normal Inspection. No: Urethral Discharge Extremities: Normal Inspection, Normal Capillary Refill Neurological: Alert, Oriented, Normal Cognition, No Motor/Sensory Deficits Psychiatric: Normal Affect, Normal Mood Skin Exam: Warm, Dry, Intact, Normal Color, No Rash Course - Vital Signs Last Recorded V/S: Last Vital Signs Temp 98.4 F 08/04/19 19:39 Pulse 101 H 08/04/19 19:39 Resp 16 08/04/19 19:39 BP 170/98 H 08/04/19 19:39 Pulse Ox 97 08/04/19 19:39 - Orders/Labs/Meds Orders: Active Orders 24 hr Category Date Time Status Plaza Catheter Insertion [Insert Urinary Catheter] [OM. Care 08/04/19 20:15 Ordered PC] Q24H Urinary Catheter Assessment [RC] ASDIRECTED Care 08/04/19 20:14 Ordered Meds: Medications Discontinued Medications Generic Name Dose Route Start Last Admin Trade Name Freq PRN Reason Stop Dose Admin Lidocaine HCl 10 ml 08/04/19 20:14 08/04/19 20:35 Xylocaine 2% Jelly MUCMEM 08/04/19 20:15 10 ml ONETIME ONE Administration - Re-Assessments/Exams Free Text/Narrative Re-Assessment/Exam: 08/04/19 20:18 Patient presents to the ED for his Plaza catheter problems. I did call [facility] and talked with Dr. [place], and he states that he would like to have the catheter replaced. I did order this to be done, will discharge the patient home if there are no complications. Departure - Departure Time of Disposition: 20:51 Disposition: Home, Self-Care 01 Condition: Fair Clinical Impression: Plaza catheter problem Qualifiers: Encounter type: initial encounter Qualified Code(s): T83.9XXA - Unspecified complication of genitourinary prosthetic device, implant and graft, initial encounter - Discharge Information *PRESCRIPTION DRUG MONITORING PROGRAM REVIEWED*: No *COPY OF PRESCRIPTION DRUG MONITORING REPORT IN PATIENT SPENCER: No Referrals: PCP,None [Primary Care Provider] - Forms: ED Department Discharge Additional Instructions: You were evaluated in the ER today regarding your Plaza catheter issue. A new Plaza catheter was placed in this ER visit, please keep this in place until you are told otherwise by your urologist. This is Dr. Veloz in [facility] in [place], [place]. Please return to the ER at any time however if your symptoms change or worsen. Sepsis Event Note - Evaluation Sepsis Screening Result: No Definite Risk - Focused Exam Vital Signs: Vital Signs Temp Pulse Resp BP Pulse Ox 08/04/19 19:39 98.4 F 101 H 16 170/98 H 97 Date Exam was Performed: 08/04/19 Time Exam was Performed: 20:51 - My Orders Last 24 Hours: My Active Orders 08/04/19 20:14 Urinary Catheter Assessment [RC] ASDIRECTED 08/04/19 20:15 Plaza Catheter Insertion [Insert Urinary Catheter] [OM.PC] Q24H - Assessment/Plan Last 24 Hours: My Active Orders 08/04/19 20:14 Urinary Catheter Assessment [RC] ASDIRECTED 08/04/19 20:15 Plaza Catheter Insertion [Insert Urinary Catheter] [OM.PC] Q24H
== END 2019-08-04 21:15 | disposition home or self-care (01) ==
LOC: JD.ED 19:25
DX: T83.091A Other mechanical complication of indwelling urethral catheter, initial encounter (principal); I10 Essential (primary) hypertension; K21.9 Gastro-esophageal reflux disease without esophagitis; F41.9 Anxiety disorder, unspecified; Z79.899 Other long term (current) drug therapy
CPT/HCPCS: 51702; 99283

== ENCOUNTER 2019-09-14 20:10 | Emergency (ER) | payer MEDICARE, OTHER, SELFPAY ==
--- NOTE | 2019-09-14 20:39 | EDM.PDOC ---
ED HPI GENERAL MEDICAL PROBLEM - General Chief Complaint: Genitourinary Problem Stated Complaint: CATH BLOCKED Time Seen by Provider: 09/14/19 20:25 Source of Information: Reports: Patient, Old Records, RN Notes Reviewed History Limitations: Reports: No Limitations - History of Present Illness INITIAL COMMENTS - FREE TEXT/NARRATIVE: Patient is a 74-year-old male who presents to the ED for his Tran catheter problems. Patient notes that he had a Tran catheter placed at the clinic yesterday, everything was going okay however roughly an hour ago the patient noticed that his Tran stopped draining. He is complaining of some lower pelvic pain, and mild bloody drainage in his catheter. Patient does appear to be in a bit of pain due to the pelvic fullness. He denies any sort of fevers or chills, or any other sick-like symptoms. Patient's temperature is mildly elevated at 99.0 F, but he does not feel warm. The patient's urologist is Dr. Veloz in [facility], and the patient does have an enlarged prostate. Bladder Pain Score (Numeric/FACES): 8 - Related Data Allergies Allergy/AdvReac Type Severity Reaction Status Date / Time No Known Allergies Allergy Verified 09/14/19 20:27 Home Meds: Home Meds Cranberry 500 mg PO DAILY 06/02/19 [History] Multivit-Minerals/Herbal 121 [Urinozinc Prostate Formula Cap] 1 tab PO DAILY 01/12 [History] Finasteride 5 mg PO BEDTIME #30 tablet 06/04/19 [Rx] Losartan [Cozaar] 25 mg PO DAILY #30 tablet 06/04/19 [Rx] Tamsulosin [Flomax] 0.4 mg PO PCBREAKFAST #30 cap.er 06/04/19 [Rx] amLODIPine [Norvasc] 5 mg PO BEDTIME #30 tab 06/04/19 [Rx] hydroCHLOROthiazide [Hydrochlorothiazide] 25 mg PO DAILY #30 tab 06/04/19 [Rx] levoFLOXacin [Levaquin] 250 mg PO DAILY #7 tab 06/14/19 [Rx] Past Medical History HEENT History: Reports: Allergic Rhinitis Cardiovascular History: Reports: Hypertension Gastrointestinal History: Reports: GERD Genitourinary History: Reports: BPH Psychiatric History: Reports: Anxiety Other Psychiatric History: not formally diagnosed - Infectious Disease History Infectious Disease History: Reports: Measles, Mumps - Past Surgical History HEENT Surgical History: Reports: None Social & Family History - Family History Family Medical History: Noncontributory - Caffeine Use Caffeine Use: Reports: Coffee - Living Situation & Occupation Living situation: Reports: , with Spouse Occupation: Retired ED ROS GENERAL - Review of Systems Review Of Systems: Comprehensive ROS is negative, except as noted in HPI. ED EXAM, RENAL/ - Physical Exam Exam: See Below Exam Limited By: No Limitations General Appearance: Alert, WD/WN, No Apparent Distress (pt appears to be in mild amount of pain) Respiratory/Chest: No Respiratory Distress, Lungs Clear, Normal Breath Sounds, No Accessory Muscle Use, Chest Non-Tender Cardiovascular: Normal Peripheral Pulses, Regular Rate, Rhythm, No Murmur GI/Abdominal: Normal Bowel Sounds, Soft, No Distention, No Mass, Tender (over suprapubic area) Extremities: Normal Inspection, Normal Capillary Refill Neurological: Alert, Oriented, Normal Cognition, No Motor/Sensory Deficits Psychiatric: Normal Affect, Normal Mood Skin Exam: Warm, Dry, Intact, Normal Color, No Rash Course - Vital Signs Last Recorded V/S: Last Vital Signs Temp 99.0 F 09/14/19 20:24 Pulse 107 H 09/14/19 20:24 Resp 18 09/14/19 20:24 BP 179/112 H 09/14/19 20:24 Pulse Ox 98 09/14/19 20:24 - Re-Assessments/Exams Free Text/Narrative Re-Assessment/Exam: 09/14/19 20:40 Will have the nurse troubleshoot this gentlemen's Tran catheter to see if we can get this one working, if not we will replace it with a new one. 09/14/19 20:58 Nurse was able to troubleshoot the catheter, and did get it draining, states that she got about 600 mL's of urine out at this time, she is planning to give him some water, and clamp his Tran to make sure that the catheter is still flowing before discharge. She noted a small amount of blood at the end of the urine that was coming out previously. Patient is okay with staying in the ER for a small amount of time for observation. He did receive pain relief from the draining of the bladder. Departure - Departure Time of Disposition: 21:29 Disposition: Home, Self-Care 01 Condition: Good Clinical Impression: Tran catheter problem Qualifiers: Encounter type: initial encounter Qualified Code(s): T83.9XXA - Unspecified complication of genitourinary prosthetic device, implant and graft, initial encounter - Discharge Information *PRESCRIPTION DRUG MONITORING PROGRAM REVIEWED*: No *COPY OF PRESCRIPTION DRUG MONITORING REPORT IN PATIENT SPENCER: No Instructions: Indwelling Urinary Catheter Care, Adult Referrals: Schuyler Renteria MD [Primary Care Provider] - Forms: ED Department Discharge Additional Instructions: You were evaluated in the ER today regarding your Tran catheter problem. Nursing staff was able to correct this problem, your catheter is flowing freely at the end of today's visit. You have been given an educational handout on Tran catheter care, please read at your leisure. Please return to the ER if your symptoms change or worsen. Sepsis Event Note - Evaluation Sepsis Screening Result: No Definite Risk - Focused Exam Vital Signs: Vital Signs Temp Pulse Resp BP Pulse Ox 09/14/19 20:24 99.0 F 107 H 18 179/112 H 98 Date Exam was Performed: 09/14/19 Time Exam was Performed: 21:29
== END 2019-09-14 21:50 | disposition home or self-care (01) ==
LOC: JD.ED 20:10
DX: T83.89XA Other specified complication of genitourinary prosthetic devices, implants and grafts, initial encounter (principal); I10 Essential (primary) hypertension; Z79.899 Other long term (current) drug therapy
CPT/HCPCS: 99283

== ENCOUNTER 2020-05-24 10:28 | Emergency (ER) | payer MEDICARE, OTHER, SELFPAY ==
[2020-05-24] MEDS ORDERED: Sodium Chloride 0.9% 10 ML Syringe FLUSH PRN (10:35)
--- NOTE | 2020-05-24 10:47 | EDM.PDOC ---
ED HPI GENERAL MEDICAL PROBLEM - General Chief Complaint: Neuro Symptoms/Deficits Stated Complaint: SOB/IMPAIRED SPEECH Time Seen by Provider: 05/24/20 10:35 Source of Information: Reports: Patient, Family History Limitations: Reports: No Limitations - History of Present Illness INITIAL COMMENTS - FREE TEXT/NARRATIVE: The patient presents with stroke like symptoms. He is a confused when he comes back. This all started 2 days ago. His said he had a headache and neck pain. He also said his eyes were not working right and he had trouble talking. He was weak when he arrived here. He was alert but only oriented to person and place. He was confused to the time. He has slurred speech. He has some weakness to his left arm. He has some blood work done yesterday for a prostate issue. He denies fever, chills, cough, chest pain, shortness of breath, abdominal pain, nausea, vomiting, or diarrhea. Onset: Gradual Duration: Day(s): (2) Location: Reports: Head, Neck Quality: Reports: Sharp Severity: Moderate Improves with: Reports: None Worsens with: Reports: None Associated Symptoms: Reports: Confusion, Headaches. Denies: Chest Pain, Cough, Fever/Chills, Nausea/Vomiting, Shortness of Breath - Related Data Allergies Allergy/AdvReac Type Severity Reaction Status Date / Time No Known Allergies Allergy Verified 09/14/19 20:27 Home Meds: Home Meds Cranberry 500 mg PO DAILY 06/02/19 [History] Multivit-Minerals/Herbal 121 [Urinozinc Prostate Formula Cap] 1 tab PO DAILY 06/02/19 [History] Finasteride 5 mg PO BEDTIME #30 tablet 06/04/19 [Rx] Losartan [Cozaar] 25 mg PO DAILY #30 tablet 06/04/19 [Rx] Tamsulosin [Flomax] 0.4 mg PO PCBREAKFAST #30 cap.er 06/04/19 [Rx] amLODIPine [Norvasc] 5 mg PO BEDTIME #30 tab 06/04/19 [Rx] hydroCHLOROthiazide [Hydrochlorothiazide] 25 mg PO DAILY #30 tab 06/04/19 [Rx] levoFLOXacin [Levaquin] 250 mg PO DAILY #7 tab 06/14/19 [Rx] Past Medical History HEENT History: Reports: Allergic Rhinitis Cardiovascular History: Reports: Hypertension Respiratory History: Reports: None Gastrointestinal History: Reports: GERD Genitourinary History: Reports: BPH Other Genitourinary History: Indwelling Catheter as of 09/13/19. Musculoskeletal History: Reports: None Neurological History: Reports: None Psychiatric History: Reports: Anxiety Other Psychiatric History: not formally diagnosed Endocrine/Metabolic History: Reports: None Hematologic History: Reports: None Immunologic History: Reports: None Oncologic (Cancer) History: Reports: None Dermatologic History: Reports: None - Infectious Disease History Infectious Disease History: Reports: Measles, Mumps - Past Surgical History HEENT Surgical History: Reports: None Social & Family History - Family History Family Medical History: No Pertinent Family History - Caffeine Use Caffeine Use: Reports: Coffee - Living Situation & Occupation Living situation: Reports: , with Spouse Occupation: Retired ED ROS GENERAL - Review of Systems Review Of Systems: See Below Constitutional: Reports: No Symptoms HEENT: Reports: No Symptoms Respiratory: Reports: No Symptoms Cardiovascular: Reports: No Symptoms Endocrine: Reports: No Symptoms GI/Abdominal: Reports: No Symptoms : Reports: No Symptoms Musculoskeletal: Reports: Neck Pain Skin: Reports: No Symptoms Neurological: Reports: Confusion, Headache, Weakness (Left arm and leg) ED EXAM, NEURO - Physical Exam Exam: See Below Exam Limited By: No Limitations General Appearance: Alert, No Apparent Distress Ears: Normal External Exam Nose: Normal Inspection Head Exam: Atraumatic, Normocephalic Neck: Normal Inspection, Supple, Non-Tender Respiratory/Chest: No Respiratory Distress, Lungs Clear, Normal Breath Sounds Cardiovascular: Regular Rate, Rhythm, No Edema, No Murmur GI/Abdominal: Soft, Non-Tender, No Organomegaly, No Mass Neurological: Alert, Other (Confused and only orientated to person and place. Mile weakness to the left arm and leg.) #1 Interpretation EKG Date: 05/24/20 Time: 10:46 Rhythm: Other (sinus tachycardia) Rate (Beats/Min): 101 [place]: Normal P-Wave: Present QRS: Normal ST-T: Normal QT: Normal Course - Vital Signs Last Recorded V/S: Last Vital Signs Temp 96.7 F L 05/24/20 10:35 Pulse 112 H 05/24/20 10:35 Resp 16 05/24/20 10:35 BP 186/104 H 05/24/20 10:35 Pulse Ox 97 05/24/20 10:35 - Orders/Labs/Meds Orders: Active Orders 24 hr Category Date Time Status Cardiac Monitoring [RC] . DIRECTED Care 05/24/20 10:35 Active EKG Documentation Completion [RC] STAT Care 05/24/20 10:36 Active Oxygen Therapy [RC] PRN Care 05/24/20 10:35 Active Peripheral IV Care [RC] . DIRECTED Care 05/24/20 10:36 Active UA RFX LOVE AND CULT IF INDIC [URIN] Stat Lab 05/24/20 11:23 Ordered Sodium Chloride 0.9% [Saline Flush] Med 05/24/20 10:35 Active 10 ml FLUSH ASDIRECTED PRN Peripheral IV Insertion Adult [OM.PC] Stat Oth 05/24/20 10:35 Ordered Medication Orders Sodium Chloride (Saline Flush) 10 ml FLUSH ASDIRECTED PRN PRN Reason: Keep Vein Open Last Admin: 05/24/20 11:15 Dose: 10 ml Documented by: SERGIO Labs: Laboratory Tests 05/24/20 05/24/20 05/24/20 Range/Units 10:37 10:48 10:48 WBC 7.07 (4.23-9.07) K/mm3 RBC 4.32 L (4.63-6.08) M/mm3 Hgb 11.7 L (13.7-17.5) gm/dl Hct 37.4 L (40.1-51.0) % MCV 86.6 D (79.0-92.2) fl MCH 27.1 (25.7-32.2) pg MCHC 31.3 L (32.2-35.5) g/dl RDW Std Deviation 45.6 H (35.1-43.9) fL Plt Count 307 D (163-337) K/mm3 MPV 9.3 L (9.4-12.3) fl Neut % (Auto) 74.6 H (34.0-67.9) % Lymph % (Auto) 15.1 L (21.8-53.1) % [place] % (Auto) 8.6 (5.3-12.2) % Eos % (Auto) 1.1 (0.8-7.0) Baso % (Auto) 0.3 (0.1-1.2) % Neut # (Auto) 5.27 (1.78-5.38) K/mm3 Lymph # (Auto) 1.07 L (1.32-3.57) K/mm3 [place] # (Auto) 0.61 (0.30-0.82) K/mm3 Eos # (Auto) 0.08 (0.04-0.54) K/mm3 Baso # (Auto) 0.02 (0.01-0.08) K/mm3 PT 10.7 (9.7-12.0) SECONDS INR 1.00 APTT 23.9 (21.7-31.4) SECONDS Sodium (136-145) mEq/L Potassium (3.5-5.1) mEq/L Chloride (98-107) mEq/L Carbon Dioxide (21-32) mEq/L Anion Gap (5-15) BUN (7-18) mg/dL Creatinine (0.7-1.3) mg/dL Est Cr Clr Drug Dosing Estimated GFR (MDRD) (>60) mL/min BUN/Creatinine Ratio (14-18) Glucose (83-115) mg/dL POC Glucose 126 H (83-110) mg/dL Calcium (8.5-10.1) mg/dL Magnesium (1.8-2.4) mg/dl Total Bilirubin (0.2-1.0) mg/dL AST (15-37) U/L ALT (16-63) U/L Alkaline Phosphatase (46-116) U/L Ammonia (11-32) umol/L Troponin I (0.00-0.056) ng/mL C-Reactive Protein (<1.0) mg/dL Total Protein (6.4-8.2) g/dl Albumin (3.4-5.0) g/dl Globulin gm/dL Albumin/Globulin Ratio (1-2) SARS-CoV-2 RNA (CHARISSE) (NEGATIVE) 05/24/20 05/24/20 05/24/20 Range/Units 10:48 10:48 11:15 WBC (4.23-9.07) K/mm3 RBC (4.63-6.08) M/mm3 Hgb (13.7-17.5) gm/dl Hct (40.1-51.0) % MCV (79.0-92.2) fl MCH (25.7-32.2) pg MCHC (32.2-35.5) g/dl RDW Std Deviation (35.1-43.9) fL Plt Count (163-337) K/mm3 MPV (9.4-12.3) fl Neut % (Auto) (34.0-67.9) % Lymph % (Auto) (21.8-53.1) % [place] % (Auto) (5.3-12.2) % Eos % (Auto) (0.8-7.0) Baso % (Auto) (0.1-1.2) % Neut # (Auto) (1.78-5.38) K/mm3 Lymph # (Auto) (1.32-3.57) K/mm3 [place] # (Auto) (0.30-0.82) K/mm3 Eos # (Auto) (0.04-0.54) K/mm3 Baso # (Auto) (0.01-0.08) K/mm3 PT (9.7-12.0) SECONDS INR APTT (21.7-31.4) SECONDS Sodium 144 (136-145) mEq/L Potassium 3.5 (3.5-5.1) mEq/L Chloride 107 (98-107) mEq/L Carbon Dioxide 24 (21-32) mEq/L Anion Gap 16.5 H (5-15) BUN 17 (7-18) mg/dL Creatinine 1.5 H (0.7-1.3) mg/dL Est Cr Clr Drug Dosing TNP Estimated GFR (MDRD) 46 (>60) mL/min BUN/Creatinine Ratio 11.3 L (14-18) Glucose 121 H (83-115) mg/dL POC Glucose (83-110) mg/dL Calcium 9.2 (8.5-10.1) mg/dL Magnesium 2.1 (1.8-2.4) mg/dl Total Bilirubin 0.9 (0.2-1.0) mg/dL AST 16 (15-37) U/L ALT 25 (16-63) U/L Alkaline Phosphatase 90 (46-116) U/L Ammonia 22 (11-32) umol/L Troponin I < 0.017 (0.00-0.056) ng/mL C-Reactive Protein 0.5 (<1.0) mg/dL Total Protein 7.2 (6.4-8.2) g/dl Albumin 3.8 (3.4-5.0) g/dl Globulin 3.4 gm/dL Albumin/Globulin Ratio 1.1 (1-2) SARS-CoV-2 RNA (CHARISSE) Negative (NEGATIVE) Meds: Medications Generic Name Dose Route Start Last Admin Trade Name Michel PRN Reason Stop Dose Admin Sodium Chloride 10 ml 05/24/20 10:35 05/24/20 11:15 Saline Flush FLUSH 10 ml ASDIRECTED PRN Administration Keep Vein Open - Re-Assessments/Exams Free Text/Narrative Re-Assessment/Exam: 05/24/20 10:55 A stroke alert was called. His last time known well was 2 days ago. I ordered a CT of his head, EKG, and labs. His EKG shows a sinus tachycardia without any acute changes. 05/24/20 12:[address] of his head shows mild senescent change. Nothing acute is appreciated on noncontrast CT study of the brain. I was able to get him in for an MRI. The MRI shows multiple diffusion abnormalities within the right frontal white matter, right periventricular white matter extending into the cortex of the right parietal lobe as well as a small area within the right parietal occipital region. These are compatible with farily acute infarcts. Minimal areas of abnormal signal on the FLAIR sequence within the right parietal and frontal findings. Mild generalized atrophy within no other acute abnormality being seen. He is out of the window of time to get thrombolytics. He is also out of the window to get thrombectomy. I will call [facility] in [place]. His Hgb is a little low at 11.7. His anion gap was elevated at 16.5. His creatinine was elevated at 1.5. His troponin is negative. His CRP is negative. His COVID is negative. I talked with Dr Melgar the neurologist injection molding process technician at [facility] in [place] and Dr Caceres the hospitalist injection molding process technician and they accepted the patient. He will be going by ambulance. Dr Melgar did want a rectal aspirin. Departure - Departure Time of Disposition: 12:50 Disposition: DC/Tfer to Acute Hospital 02 Condition: Serious Clinical Impression: Cerebrovascular accident (CVA) Qualifiers: CVA mechanism: unspecified Qualified Code(s): I63.9 - Cerebral infarction, unspecified - Discharge Information Referrals: Schuyler Renteria MD [Primary Care Provider] - Forms: ED Department Discharge Sepsis Event Note (ED) - Focused Exam Vital Signs: Vital Signs Temp Pulse Resp BP Pulse Ox 05/24/20 10:35 96.7 F L 112 H 16 186/104 H 97 - My Orders Last 24 Hours: My Active Orders 05/24/20 10:35 Cardiac Monitoring [RC] . DIRECTED Oxygen Therapy [RC] PRN Sodium Chloride 0.9% [Saline Flush] 10 ml FLUSH ASDIRECTED PRN Peripheral IV Insertion Adult [OM.PC] Stat 05/24/20 10:36 EKG Documentation Completion [RC] STAT Peripheral IV Care [RC] . DIRECTED 05/24/20 11:23 UA RFX LOVE AND CULT IF INDIC [URIN] Stat - Assessment/Plan Last 24 Hours: My Active Orders 05/24/20 10:35 Cardiac Monitoring [RC] . DIRECTED Oxygen Therapy [RC] PRN Sodium Chloride 0.9% [Saline Flush] 10 ml FLUSH ASDIRECTED PRN Peripheral IV Insertion Adult [OM.PC] Stat 05/24/20 10:36 EKG Documentation Completion [RC] STAT Peripheral IV Care [RC] . DIRECTED 05/24/20 11:23 UA RFX LOVE AND CULT IF INDIC [URIN] Stat
--- NOTE | 2020-05-24 11:03 | CT ---
Head CT Technique: Multiple axial sections through the brain were obtained. Intravenous contrast was not utilized. Comparison: No prior intracranial imaging is available. Findings: Ventricles are mildly dilated. Mild areas of diminished density are noted within the periventricular white matter compatible with small vessel ischemic demyelination change. No acute intracranial hemorrhage is seen. Atherosclerotic calcification is seen within the carotid siphon. Bone window setting shows nothing acute within the visualized mastoid sinuses or visualized paranasal sinuses. No acute calvarial finding is seen. Impression: 1. Mild senescent change. 2. Nothing acute is appreciated on noncontrast CT study of the brain. Diagnostic code #2
--- NOTE | 2020-05-24 12:04 | MR ---
MRI brain Technique: T1 sagittal; T2, T2 FLAIR, T1, T2 gradient echo and diffusion axial; T2 gradient echo and T1-weighted coronal images were obtained. Findings: Diffusion sequence reveals abnormal diffusion within the right frontal, slight periventricular diffusion extending into the right parietal cortex in several locations. Slight areas of abnormal diffusion are also noted near the junction of the parietal occipital lobe. Minimal areas of increased signal are seen within the frontal and parietal regions on the FLAIR sequence. No other abnormal signal is seen. Ventricles along with basal cisterns and sulci over the convexities are mildly prominent. No midline shift or mass-effect is appreciated. No discrete filling defects are seen within the major cerebral arteries within the skull base. Impression: 1. Multiple diffusion abnormalities within the right frontal white matter, right periventricular white matter extending into the cortex of the right parietal lobe as well as a small area within the right parietal occipital region. These are compatible with fairly acute infarcts. 2. Minimal areas of abnormal signal on the FLAIR sequence within the right parietal and frontal findings. 3. Mild generalized atrophy with no other acute abnormality being seen. Diagnostic code #5
[2020-05-24] MEDS ORDERED: Aspirin 300 MG Supp RECTAL ONE (12:35)
== END 2020-05-24 13:25 ==
LOC: JD.ED 10:28
DX: I63.9 Cerebral infarction, unspecified (principal); I10 Essential (primary) hypertension; N40.0 Benign prostatic hyperplasia without lower urinary tract symptoms; Z20.828 Contact with and (suspected) exposure to other viral communicable diseases; Z79.899 Other long term (current) drug therapy
CPT/HCPCS: 36415; 70450; 70551; 80053; 82140; 82962; 83735; 84484; 85025; 85610; 85730; 86140; 93005; 99285; A9270; U0002

== ENCOUNTER 2020-07-09 08:43 | Emergency (ER) | payer MEDICARE, SELFPAY ==
--- NOTE | 2020-07-09 09:01 | EDM.PDOC ---
ED HPI GENERAL MEDICAL PROBLEM - General Chief Complaint: Neuro Symptoms/Deficits Stated Complaint: STROKE SYMPTOMS Time Seen by Provider: 07/09/20 08:43 - History of Present Illness INITIAL COMMENTS - FREE TEXT/NARRATIVE: 73-year-old male presents the emergency room with left arm weakness. Patient awoke this morning around 7 AM [place] time with left arm weakness. He went to bed last night everything seem to be okay he awoke shortly before midnight had some dizziness and thought maybe he should come in at that time but he fell back asleep. When he awoke this morning around 7:00 he had numbness and weakness in his left arm but he is able to ambulate at or near baseline. Patient had a stroke back on May 24 of this last year. So his last known normal is unclear he had some dizziness around midnight but the onset time is unclear. - Related Data Allergies Allergy/AdvReac Type Severity Reaction Status Date / Time No Known Allergies Allergy Verified 07/09/20 08:52 Home Meds: Home Meds Cranberry 500 mg PO DAILY 06/02/19 [History] Multivit-Minerals/Herbal 121 [Urinozinc Prostate Formula Cap] 1 tab PO DAILY 06/02/19 [History] Finasteride 5 mg PO BEDTIME #30 tablet 06/04/19 [Rx] Losartan [Cozaar] 25 mg PO DAILY #30 tablet 06/04/19 [Rx] Tamsulosin [Flomax] 0.4 mg PO PCBREAKFAST #30 cap.er 06/04/19 [Rx] amLODIPine [Norvasc] 5 mg PO BEDTIME #30 tab 06/04/19 [Rx] hydroCHLOROthiazide [Hydrochlorothiazide] 25 mg PO DAILY #30 tab 06/04/19 [Rx] levoFLOXacin [Levaquin] 250 mg PO DAILY #7 tab 06/14/19 [Rx] Past Medical History HEENT History: Reports: Allergic Rhinitis Cardiovascular History: Reports: Hypertension Respiratory History: Reports: None Gastrointestinal History: Reports: GERD Genitourinary History: Reports: BPH Other Genitourinary History: Indwelling Catheter as of 09/13/19. Musculoskeletal History: Reports: None Neurological History: Reports: None Psychiatric History: Reports: Anxiety Other Psychiatric History: not formally diagnosed Endocrine/Metabolic History: Reports: None Hematologic History: Reports: None Immunologic History: Reports: None Oncologic (Cancer) History: Reports: None Dermatologic History: Reports: None - Infectious Disease History Infectious Disease History: Reports: Measles, Mumps - Past Surgical History HEENT Surgical History: Reports: None Social & Family History - Family History Family Medical History: No Pertinent Family History - Caffeine Use Caffeine Use: Reports: Coffee Caffeine Use Comment: Unknown. - Living Situation & Occupation Living situation: Reports: , with Spouse Occupation: Retired ED ROS GENERAL - Review of Systems Review Of Systems: See Below Constitutional: Reports: No Symptoms HEENT: Reports: No Symptoms Respiratory: Reports: No Symptoms Cardiovascular: Reports: Lightheadedness (Yesterday this seems to have resolved). Denies: No Symptoms, Chest Pain GI/Abdominal: Reports: No Symptoms Musculoskeletal: Reports: No Symptoms Skin: Reports: No Symptoms Neurological: Reports: Weakness. Denies: Headache Psychiatric: Reports: No Symptoms ED EXAM, NEURO - Physical Exam Exam: See Below Exam Limited By: Other (He has what appears to be an expressive aphasia and has a hard time following concise instructions) General Appearance: Alert, No Apparent Distress Eye Exam: Bilateral Eye: Normal Inspection Ears: Normal External Exam, Normal Canal, Hearing Grossly Normal, Normal TMs, Other (Nonobstructing cerumen noted in both canals) Nose: Normal Inspection, Normal Mucosa, No Blood Throat/Mouth: Normal Inspection, Normal Lips, Normal Gums, Normal Oropharynx, Normal Voice, No Airway Compromise, Other (He is missing multiple teeth and some of the remaining teeth are in poor repair). No: Normal Teeth Head Exam: Atraumatic, Normocephalic Neck: Normal Inspection, Supple, Non-Tender, Full Range of Motion. No: Lymphadenopathy (L), Lymphadenopathy (R) Respiratory/Chest: No Respiratory Distress, Lungs Clear, Normal Breath Sounds Cardiovascular: Regular Rate, Rhythm, No Edema, No Murmur GI/Abdominal: Normal Bowel Sounds, Soft, Non-Tender Neurological: Other (The patient has an expressive aphasia. He has fairly equal subsorter strength bilaterally however he does have some ulnar drift on the left side and the left arm is more easily fatigued when trying to hold it up compared to the right. He has no clear-cut difference in his left lower extremity compared to the right) Back Exam: Normal Inspection. No: CVA Tenderness (L), CVA Tenderness (R) Extremities: Normal Inspection, No Pedal Edema #1 Interpretation EKG Date: 07/09/20 Rhythm: NSR Rate (Beats/Min): 96 Ider: Normal P-Wave: Absent (First-degree AV block) QRS: Normal ST-T: Normal QT: Normal Comparison: No Change (No significant change from 05/24/2020) Course - Vital Signs Last Recorded V/S: Last Vital Signs Temp 35.8 C L 07/09/20 08:47 Pulse 105 H 07/09/20 08:47 Resp 20 07/09/20 08:47 BP 209/112 H 07/09/20 08:47 Pulse Ox 100 07/09/20 08:47 - Orders/Labs/Meds Orders: Active Orders 24 hr Category Date Time Status EKG Documentation Completion [RC] STAT Care 07/09/20 08:51 Active Labs: Laboratory Tests 07/09/20 07/09/20 07/09/20 Range/Units 09:06 09:07 09:07 WBC 5.44 (4.23-9.07) K/mm3 RBC 4.45 L (4.63-6.08) M/mm3 Hgb 12.1 L (13.7-17.5) gm/dl Hct 40.1 (40.1-51.0) % MCV 90.1 D (79.0-92.2) fl MCH 27.2 (25.7-32.2) pg MCHC 30.2 L (32.2-35.5) g/dl RDW Std Deviation 51.3 H (35.1-43.9) fL Plt Count 244 (163-337) K/mm3 MPV 9.5 (9.4-12.3) fl Neut % (Auto) 68.2 H (34.0-67.9) % Lymph % (Auto) 18.0 L (21.8-53.1) % [place] % (Auto) 8.3 (5.3-12.2) % Eos % (Auto) 4.2 (0.8-7.0) Baso % (Auto) 0.9 (0.1-1.2) % Neut # (Auto) 3.71 (1.78-5.38) K/mm3 Lymph # (Auto) 0.98 L (1.32-3.57) K/mm3 [place] # (Auto) 0.45 (0.30-0.82) K/mm3 Eos # (Auto) 0.23 (0.04-0.54) K/mm3 Baso # (Auto) 0.05 (0.01-0.08) K/mm3 PT 10.9 (9.7-12.0) SECONDS INR 1.02 APTT 25.5 (21.7-31.4) SECONDS Sodium (136-145) mEq/L Potassium (3.5-5.1) mEq/L Chloride (98-107) mEq/L Carbon Dioxide (21-32) mEq/L Anion Gap (5-15) BUN (7-18) mg/dL Creatinine (0.7-1.3) mg/dL Est Cr Clr Drug Dosing mL/min Estimated GFR (MDRD) (>60) mL/min BUN/Creatinine Ratio (14-18) Glucose (83-115) mg/dL POC Glucose 124 H (83-110) mg/dL Calcium (8.5-10.1) mg/dL Total Bilirubin (0.2-1.0) mg/dL AST (15-37) U/L ALT (16-63) U/L Alkaline Phosphatase (46-116) U/L Troponin I (0.00-0.056) ng/mL Total Protein (6.4-8.2) g/dl Albumin (3.4-5.0) g/dl Globulin gm/dL Albumin/Globulin Ratio (1-2) SARS-CoV-2 RNA (CHARISSE) (NEGATIVE) 07/09/20 07/09/20 Range/Units 09:07 09:10 WBC (4.23-9.07) K/mm3 RBC (4.63-6.08) M/mm3 Hgb (13.7-17.5) gm/dl Hct (40.1-51.0) % MCV (79.0-92.2) fl MCH (25.7-32.2) pg MCHC (32.2-35.5) g/dl RDW Std Deviation (35.1-43.9) fL Plt Count (163-337) K/mm3 MPV (9.4-12.3) fl Neut % (Auto) (34.0-67.9) % Lymph % (Auto) (21.8-53.1) % [place] % (Auto) (5.3-12.2) % Eos % (Auto) (0.8-7.0) Baso % (Auto) (0.1-1.2) % Neut # (Auto) (1.78-5.38) K/mm3 Lymph # (Auto) (1.32-3.57) K/mm3 [place] # (Auto) (0.30-0.82) K/mm3 Eos # (Auto) (0.04-0.54) K/mm3 Baso # (Auto) (0.01-0.08) K/mm3 PT (9.7-12.0) SECONDS INR APTT (21.7-31.4) SECONDS Sodium 144 (136-145) mEq/L Potassium 4.3 (3.5-5.1) mEq/L Chloride 107 (98-107) mEq/L Carbon Dioxide 25 (21-32) mEq/L Anion Gap 16.3 H (5-15) BUN 13 (7-18) mg/dL Creatinine 1.4 H (0.7-1.3) mg/dL Est Cr Clr Drug Dosing 50.05 mL/min Estimated GFR (MDRD) 50 (>60) mL/min BUN/Creatinine Ratio 9.3 L (14-18) Glucose 119 H (83-115) mg/dL POC Glucose (83-110) mg/dL Calcium 9.1 (8.5-10.1) mg/dL Total Bilirubin 1.3 H (0.2-1.0) mg/dL AST 27 (15-37) U/L ALT 49 (16-63) U/L Alkaline Phosphatase 79 (46-116) U/L Troponin I < 0.017 (0.00-0.056) ng/mL Total Protein 7.2 (6.4-8.2) g/dl Albumin 4.0 (3.4-5.0) g/dl Globulin 3.2 gm/dL Albumin/Globulin Ratio 1.3 (1-2) SARS-CoV-2 RNA (CHARISSE) Negative (NEGATIVE) - Re-Assessments/Exams Free Text/Narrative Re-Assessment/Exam: 07/09/20 10:25 Patient presents to the emergency room by private car. He is able to ambulate. Complains of left upper extremity weakness this was preceded by uncertain episode of dizziness last night. Head CT shows no acute changes old strokes seen within the right frontal region. He is not a thrombolytic candidate Case discussed with Dr. Mcmullen Who recommends transferring for CTA and further evaluation. Case discussed with emergency room physician Dr. Avalos who kindly accepts the patient. Stroke score is a 3 it is hard to differentiate what is old and potentially new Departure - Departure Time of Disposition: 09:51 Disposition: DC/Tfer to [facility] 02 Clinical Impression: CVA (cerebral vascular accident) Qualifiers: CVA mechanism: unspecified Qualified Code(s): I63.9 - Cerebral infarction, unspecified - Discharge Information Referrals: Schuyler Renteria MD [Primary Care Provider] - Forms: ED Department Discharge Sepsis Event Note (ED) - Focused Exam Vital Signs: Vital Signs Temp Pulse Resp BP Pulse Ox 07/09/20 08:47 35.8 C L 105 H 20 209/112 H 100 - My Orders Last 24 Hours: My Active Orders 07/09/20 08:51 EKG Documentation Completion [RC] STAT - Assessment/Plan Last 24 Hours: My Active Orders 07/09/20 08:51 EKG Documentation Completion [RC] STAT
--- NOTE | 2020-07-09 09:20 | CT ---
Head CT Technique: Multiple axial sections through the brain were obtained. Intravenous contrast was not utilized. Reconstructed coronal and sagittal images were obtained. Comparison: Prior MRI brain and head CT study of 05/24/20. Findings: Ventricles as well as sulci over the convexities are mildly dilated. There is an old infarct within the posterior right frontal region. Separate abnormality within the right frontal region is also noted compatible with old infarct. No other abnormal parenchymal densities are seen. No evidence of intracranial hemorrhage. No midline shift or mass-effect is appreciated. Bone window settings were reviewed. Visualized paranasal sinuses show slight chronic change with nothing acute. Visualized mastoid sinuses show nothing acute. No acute calvarial finding is appreciated. Atherosclerotic calcification is seen within the carotid siphon and within the vertebral vessels. Impression: 1. Two small old infarcts within the posterior right frontal region. 2. Mild generalized atrophy. 3. Nothing acute is appreciated. With patient's symptoms, consider MRI for further evaluation. Diagnostic code #3
== END 2020-07-09 11:05 ==
LOC: JD.ED 08:43
DX: I63.9 Cerebral infarction, unspecified (principal); I10 Essential (primary) hypertension; K21.9 Gastro-esophageal reflux disease without esophagitis; N40.0 Benign prostatic hyperplasia without lower urinary tract symptoms; Z20.822 Contact with and (suspected) exposure to COVID-19; Z79.899 Other long term (current) drug therapy
CPT/HCPCS: 36415; 70450; 80053; 82962; 84484; 85025; 85610; 85730; 93005; 99285; U0002; 93010

== ENCOUNTER → 2020-08-10 | Day surgery (SDC) | payer MEDICARE, OTHER, SELFPAY ==
[~2020-08-10] MED LIST: Cefuroxime 10 MG/ML SYRINGE EYELF SCH; Lidocaine 1% PF 2 ML SDV INJECT SCH; Pilocarpine 4% Ophth Soln 15 ML Bot EYELF SCH
[2020-08-10] MEDS: Polymyxin B/Trimethoprim 10 ML Bottle EYELF SCH ×3 (10:59→13:00)
[2020-08-10] MEDS: Brimonidine 0.2% Ophth Soln 5 ML Bottle EYELF SCH ×3 (11:05→13:00)
[2020-08-10] MEDS: Phenylephrine 2.5% Ophth Soln 2 ML Bot EYELF SCH ×6 (11:10→12:31)
[2020-08-10] MEDS: Tropicamide 1% Ophth Soln 15 ML Bottle EYELF SCH ×4 (11:15→12:05)
--- NOTE | 2020-08-10 12:02 | PCM.PREANE ---
Preanesthetic Assessment - Anesthesia/Transfusion/Family Hx Anesthesia History: Prior Anesthesia Without Reaction Family History of Anesthesia Reaction: No Transfusion History: No Prior Transfusion(s) - Review of Systems General: Fatigue Pulmonary: Shortness of Breath Cardiovascular: No Symptoms Gastrointestinal: No Symptoms Neurological: Weakness Other: Reports: None - Physical Assessment NPO Status Date: 08/09/20 NPO Status Time: 00:00 Height: 1.73 m Weight: 77.111 kg ASA Class: 3 Mental Status: Alert & Oriented x3 Airway Class: Mallampati = 2 Dentition: Reports: Missing Tooth/Teeth, Caries Thyro-Mental Finger Breadths: 2 Mouth Opening Finger Breadths: 2 ROM/Head Extension: Limited/Partial Lungs: Clear to Auscultation, Normal Respiratory Effort Cardiovascular: Regular Rate, Regular Rhythm - Allergies Allergies/Adverse Reactions: Allergies Allergy/AdvReac Type Severity Reaction Status Date / Time No Known Allergies Allergy Verified 08/09/20 13:13 - Blood Blood Available: No Product(s) Available: None - Anesthesia Plan Pre-Op Medication Ordered: None - Acknowledgements Anesthesia Type Planned: MAC Pt an Appropriate Candidate for the Planned Anesthesia: Yes Alternatives and Risks of Anesthesia Discussed w Pt/Guardian: Yes Pt/Guardian Understands and Agrees with Anesthesia Plan: Yes PreAnesthesia Questionnaire - Past Health History Medical/Surgical History: Denies Medical/Surgical History HEENT History: Reports: Allergic Rhinitis Cardiovascular History: Reports: Hypertension Respiratory History: Reports: None Gastrointestinal History: Reports: GERD Genitourinary History: Reports: BPH Other Genitourinary History: Indwelling Catheter as of 09/13/19. Musculoskeletal History: Reports: None Neurological History: Reports: CVA Psychiatric History: Reports: Anxiety Other Psychiatric History: not formally diagnosed Endocrine/Metabolic History: Reports: None Hematologic History: Reports: None Immunologic History: Reports: None Oncologic (Cancer) History: Reports: None Dermatologic History: Reports: None - Infectious Disease History Infectious Disease History: Reports: Measles, Mumps - Past Surgical History HEENT Surgical History: Reports: None - HOME MEDS Home Medications: Home Meds Cranberry 500 mg PO DAILY 06/02/19 [History] Multivit-Minerals/Herbal 121 [Urinozinc Prostate Formula Cap] 1 tab PO DAILY 06/02/19 [History] Finasteride 5 mg PO BEDTIME #30 tablet 06/04/19 [Rx] Losartan [Cozaar] 25 mg PO DAILY #30 tablet 06/04/19 [Rx] Tamsulosin [Flomax] 0.4 mg PO PCBREAKFAST #30 cap.er 06/04/19 [Rx] amLODIPine [Norvasc] 5 mg PO BEDTIME #30 tab 06/04/19 [Rx] hydroCHLOROthiazide [Hydrochlorothiazide] 25 mg PO DAILY #30 tab 06/04/19 [Rx] - CURRENT (IN HOUSE) MEDS Current Meds: Current Medications Brimonidine Tartrate (Brimonidine 0.2% Ophth Soln 5 Ml Bottle) 0 ml EYELF ASDIRECTED NU Stop: 08/10/20 18:00 Last Admin: 08/10/20 11:49 Dose: 1 drop Documented by: Cefuroxime Sodium (Cefuroxime 10 Mg/Ml Syringe) 0 mg EYELF ASDIRECTED NU Stop: 08/10/20 18:00 Lidocaine HCl (Lidocaine 1% Pf 2 Ml Sdv) 0 ml INJECT ASDIRECTED [facility] Stop: 08/10/20 18:00 Phenylephrine HCl (Phenylephrine 2.5% Ophth Soln 2 Ml Bot) 0 ml EYELF ASDIRECTED NU Stop: 08/10/20 18:00 Last Admin: 08/10/20 11:57 Dose: 1 drop Documented by: Pilocarpine HCl (Pilocarpine 4% Ophth Soln 15 Ml Bot) 0 ml EYELF ASDIRECTED NU Stop: 08/10/20 18:00 Polymyxin/Trimethoprim Sulfate (Polymyxin B/Trimethoprim 10 Ml Bottle) 0 ml EYELF ASDIRECTED NU Stop: 08/10/20 18:00 Last Admin: 08/10/20 11:42 Dose: 1 drop Documented by: Tetracaine HCl (Tetracaine Hcl/Pf 0.5% 4 Ml Bottle) 0 ml EYEBOTH ASDIRECTED NU Stop: 08/10/20 18:00 Tropicamide (Tropicamide 1% Ophth Soln 15 Ml Bottle) 0 ml EYELF ASDIRECTED NU Stop: 08/10/20 18:00 Last Admin: 08/10/20 11:37 Dose: 1 drop Documented by:
[2020-08-10] MEDS: Tetracaine HCl/PF 0.5% 4 ML Bottle EYEBOTH SCH ×4 (12:23→12:46)
--- NOTE | 2020-08-10 13:05 | PCM48HPAN ---
Post Anesthesia Note - EVALUATION WITHIN 48HRS OF ANESTHETIC Vital Signs in Normal Range: Yes Patient Participated in Evaluation: Yes Respiratory Function Stable: Yes Airway Patent: Yes Cardiovascular Function Stable: Yes Hydration Status Stable: Yes Pain Control Satisfactory: Yes Nausea and Vomiting Control Satisfactory: Yes Mental Status Recovered: Yes
== END ==
LOC: JD.SDS 10:52
PROVIDERS: ATTEND Ophthalmology
DX: H25.813 Combined forms of age-related cataract, bilateral (principal); H16.103 Unspecified superficial keratitis, bilateral; H16.223 Keratoconjunctivitis sicca, not specified as Sjogren's, bilateral; H02.834 Dermatochalasis of left upper eyelid; H02.831 Dermatochalasis of right upper eyelid; I10 Essential (primary) hypertension; Z86.73 Personal history of transient ischemic attack (TIA), and cerebral infarction without residual deficits; Z79.82 Long term (current) use of aspirin; Z79.899 Other long term (current) drug therapy
CPT/HCPCS: 66984; J0697; C1780

== ENCOUNTER 2020-09-12 08:01 | Day surgery (SDC) | payer MEDICARE, OTHER ==
[2020-09-12] MEDS: Tetracaine HCl/PF 0.5% 4 ML Bottle EYEBOTH SCH ×5 (08:03→09:45)
[2020-09-12] MEDS: Lidocaine 1% PF 2 ML SDV INJECT SCH ×2 (08:03→09:46)
[2020-09-12] MEDS: Phenylephrine 2.5% Ophth Soln 2 ML Bot EYERT SCH ×6 (08:03→09:37)
[2020-09-12] MEDS: Cefuroxime 10 MG/ML SYRINGE EYERT SCH ×2 (08:04→09:56)
[2020-09-12] MEDS: Brimonidine 0.2% Ophth Soln 5 ML Bottle EYERT SCH ×4 (08:05→09:57)
[2020-09-12] MEDS: Polymyxin B/Trimethoprim 10 ML Bottle EYERT SCH ×5 (08:06→09:57)
[2020-09-12] MEDS: Pilocarpine 4% Ophth Soln 15 ML Bot EYERT SCH ×2 (08:06→09:57)
--- NOTE | 2020-09-12 08:14 | PCM.PREANE ---
Preanesthetic Assessment - Procedure Proposed Procedure: CATARACT EXTRACTION RIGHT EYE - Anesthesia/Transfusion/Family Hx Anesthesia History: Prior Anesthesia Without Reaction Family History of Anesthesia Reaction: No Transfusion History: No Prior Transfusion(s) - Review of Systems General: Fatigue Pulmonary: No Symptoms Cardiovascular: Other (Loop recorder, left chest. ) Gastrointestinal: No Symptoms Neurological: Headache (None today. ), Pre-Existing Deficit (Multiple strokes, last one in June. Left arm weakness improved with PT. ) Other: Reports: Anxiety - Physical Assessment NPO Status Date: 09/11/20 NPO Status Time: 22:00 Vital Signs: 97.1 20 80 97% 134/80 Height: 1.73 m Weight: 77.111 kg ASA Class: 3 Mental Status: Alert & Oriented x3 Airway Class: Mallampati = 3 Dentition: Reports: Missing Tooth/Teeth, Caries (Poor condition per patient. ) Thyro-Mental Finger Breadths: 3 Mouth Opening Finger Breadths: 3 ROM/Head Extension: Full Lungs: Clear to Auscultation, Normal Respiratory Effort Cardiovascular: Regular Rate, Regular Rhythm - Allergies Allergies/Adverse Reactions: Allergies Allergy/AdvReac Type Severity Reaction Status Date / Time No Known Allergies Allergy Verified 09/11/20 14:28 - Acknowledgements Anesthesia Type Planned: MAC Pt an Appropriate Candidate for the Planned Anesthesia: Yes Alternatives and Risks of Anesthesia Discussed w Pt/Guardian: Yes Pt/Guardian Understands and Agrees with Anesthesia Plan: Yes PreAnesthesia Questionnaire - Past Health History Medical/Surgical History: Denies Medical/Surgical History HEENT History: Reports: Allergic Rhinitis Cardiovascular History: Reports: Hypertension Respiratory History: Reports: None Gastrointestinal History: Reports: GERD Genitourinary History: Reports: BPH Other Genitourinary History: Indwelling Catheter as of 09/13/19. Musculoskeletal History: Reports: None Neurological History: Reports: CVA Psychiatric History: Reports: Anxiety Other Psychiatric History: not formally diagnosed Endocrine/Metabolic History: Reports: None Hematologic History: Reports: None Immunologic History: Reports: None Oncologic (Cancer) History: Reports: None Dermatologic History: Reports: None - Infectious Disease History Infectious Disease History: Reports: Measles, Mumps - Past Surgical History HEENT Surgical History: Reports: None - HOME MEDS Home Medications: Home Meds Cranberry 500 mg PO DAILY 06/02/19 [History] Multivit-Minerals/Herbal 121 [Urinozinc Prostate Formula Cap] 1 tab PO DAILY 06/02/19 [History] Finasteride 5 mg PO BEDTIME #30 tablet 06/04/19 [Rx] Losartan [Cozaar] 25 mg PO DAILY #30 tablet 06/04/19 [Rx] Tamsulosin [Flomax] 0.4 mg PO PCBREAKFAST #30 cap.er 06/04/19 [Rx] amLODIPine [Norvasc] 5 mg PO BEDTIME #30 tab 06/04/19 [Rx] Rosuvastatin [Crestor] 20 mg PO DAILY 08/10/20 [History] - CURRENT (IN HOUSE) MEDS Current Meds: Current Medications Brimonidine Tartrate (Brimonidine 0.2% Ophth Soln 5 Ml Bottle) 0 ml EYERT ASDIRECTED NU Stop: 09/12/20 18:00 Cefuroxime Sodium (Cefuroxime 10 Mg/Ml Syringe) 0 mg EYERT ASDIRECTED NU Stop: 09/12/20 18:00 Lidocaine HCl (Lidocaine 1% Pf 2 Ml Sdv) 0 ml INJECT ASDIRECTED NU Stop: 09/12/20 18:00 Phenylephrine HCl (Phenylephrine 2.5% Ophth Soln 2 Ml Bot) 0 ml EYERT ASDIRECTED NU Stop: 09/12/20 18:00 Pilocarpine HCl (Pilocarpine 4% Ophth Soln 15 Ml Bot) 0 ml EYERT ASDIRECTED NU Stop: 09/12/20 18:00 Polymyxin/Trimethoprim Sulfate (Polymyxin B/Trimethoprim 10 Ml Bottle) 0 ml EYERT ASDIRECTED NU Stop: 09/12/20 18:00 Tetracaine HCl (Tetracaine Hcl/Pf 0.5% 4 Ml Bottle) 0 ml EYEBOTH ASDIRECTED NU Stop: 09/12/20 18:00 Tropicamide (Tropicamide 1% Ophth Soln 15 Ml Bottle) 0 ml EYERT ASDIRECTED NU Stop: 09/12/20 18:00
[2020-09-12] MEDS: Tropicamide 1% Ophth Soln 15 ML Bottle EYERT SCH ×4 (08:21→09:01)
--- NOTE | 2020-09-12 09:59 | PCM48HPAN ---
Post Anesthesia Note - EVALUATION WITHIN 48HRS OF ANESTHETIC Vital Signs in Normal Range: Yes Patient Participated in Evaluation: Yes Respiratory Function Stable: Yes Airway Patent: Yes Cardiovascular Function Stable: Yes Hydration Status Stable: Yes Pain Control Satisfactory: Yes Nausea and Vomiting Control Satisfactory: Yes Mental Status Recovered: Yes Vital Signs: Last Vital Signs Temp Pulse 80 09/12/20 07:50 Resp 20 09/12/20 07:50 BP 134/80 09/12/20 07:50 Pulse Ox 97 09/12/20 07:50
== END 2020-09-12 10:09 | disposition home or self-care (01) ==
LOC: JD.SDS 08:01
PROVIDERS: ATTEND Ophthalmology
DX: H25.811 Combined forms of age-related cataract, right eye (principal); I10 Essential (primary) hypertension; Z86.73 Personal history of transient ischemic attack (TIA), and cerebral infarction without residual deficits; Z79.899 Other long term (current) drug therapy; Z96.1 Presence of intraocular lens
CPT/HCPCS: 66984; C1780; J0697

== ENCOUNTER 2020-12-01 12:58 | Emergency (ER) | payer MEDICARE, SELFPAY ==
[2020-12-01] MEDS ORDERED: Sodium Chloride 0.9% 10 ML Syringe FLUSH PRN (13:10)
--- NOTE | 2020-12-01 13:38 | CT ---
Head CT Technique: Multiple axial sections through the brain were obtained. Intravenous contrast was not utilized. Reconstructed coronal and sagittal images were obtained. Comparison: Prior head CT study of 07/09/20 and prior brain MRI of 05/24/20. Findings: Two low density areas are noted within the right frontal and near the right frontoparietal junction. These findings are stable from prior head CT exam and are compatible with previous infarcts. Ventricles along with basal cisterns and sulci over the convexities are mildly dilated. No other abnormal parenchymal densities are seen. No midline shift or mass-effect is seen. Bone window settings were reviewed. Slight mucosal thickening is seen within the sphenoid sinus as well as minimal findings within the maxillary sinuses. Mastoid sinuses show nothing acute. No acute calvarial abnormality is appreciated. Atherosclerotic calcification is seen within the carotid siphon and within the vertebral vessels which are similar to previous study. Impression: 1. Mild generalized atrophy. Two small areas of infarct anteriorly on the right side as noted above. 2. Minimal sinus findings which are stable. 3. No acute intracranial abnormality is appreciated. Note: If patient's symptoms remain persistent, MRI could then be considered. Diagnostic code #2
[2020-12-01] MEDS ORDERED: Clopidogrel 75 MG Tab PO ONE (14:15)
--- NOTE | 2020-12-01 14:48 | EDM.PDOC ---
ED HPI GENERAL MEDICAL PROBLEM - General Chief Complaint: Neuro Symptoms/Deficits Stated Complaint: RT ARM NUMBNESS Time Seen by Provider: 12/01/20 13:08 Source of Information: Reports: Patient, Family History Limitations: Reports: No Limitations - History of Present Illness INITIAL COMMENTS - FREE TEXT/NARRATIVE: The patient presents with left arm numbness and weakness. His last time known well was 10am this morning. He has moderate weakness to his left arm. He said about 2 weeks ago this happened and he lifted a 10 pound weight with his arm and it got better in a few hours. He has no headache, fever, chills, cough, chest pain, shortness of breath, abdominal pain, nausea, or vomiting. He has had 2 prior strokes. His last stroke was in June. He is on aspirin. Onset: Sudden Duration: Hour(s): (3) Location: Reports: Upper Extremity, Left Severity: Moderate Improves with: Reports: None Worsens with: Reports: None Associated Symptoms: Reports: No Other Symptoms - Related Data Allergies Allergy/AdvReac Type Severity Reaction Status Date / Time No Known Allergies Allergy Verified 12/01/20 13:11 Home Meds: Home Meds Cranberry 500 mg PO DAILY 06/02/19 [History] Multivit-Minerals/Herbal 121 [Urinozinc Prostate Formula Cap] 1 tab PO DAILY 06/02/19 [History] Rosuvastatin [Crestor] 20 mg PO DAILY 08/10/20 [History] Aspirin 81 mg PO DAILY 12/01/20 [History] Losartan [Cozaar] 50 mg PO DAILY 12/01/20 [History] Pantoprazole [ProTONIX] 40 mg PO DAILY 12/01/20 [History] Tamsulosin HCl [Flomax] 0.4 mg PO BID 12/01/20 [History] amLODIPine [Norvasc] 10 mg PO DAILY 12/01/20 [History] Past Medical History HEENT History: Reports: Allergic Rhinitis Cardiovascular History: Reports: Hypertension Respiratory History: Reports: None Gastrointestinal History: Reports: GERD Genitourinary History: Reports: BPH Other Genitourinary History: Indwelling Catheter as of 09/13/19. Musculoskeletal History: Reports: None Neurological History: Reports: CVA Psychiatric History: Reports: Anxiety Other Psychiatric History: not formally diagnosed Endocrine/Metabolic History: Reports: None Hematologic History: Reports: None Immunologic History: Reports: None Oncologic (Cancer) History: Reports: None Dermatologic History: Reports: None - Infectious Disease History Infectious Disease History: Reports: Measles, Mumps - Past Surgical History HEENT Surgical History: Reports: None Social & Family History - Family History Family Medical History: No Pertinent Family History - Tobacco Use Tobacco Use Status *Q: Never Tobacco User Second Hand Smoke Exposure: No - Caffeine Use Caffeine Use: Reports: None Caffeine Use Comment: Unknown. - Recreational Drug Use Recreational Drug Use: No - Living Situation & Occupation Living situation: Reports: , with Spouse Occupation: Retired ED ROS GENERAL - Review of Systems Review Of Systems: See Below Constitutional: Reports: No Symptoms HEENT: Reports: No Symptoms Respiratory: Reports: No Symptoms Cardiovascular: Reports: No Symptoms Endocrine: Reports: No Symptoms GI/Abdominal: Reports: No Symptoms : Reports: No Symptoms Musculoskeletal: Reports: No Symptoms Skin: Reports: No Symptoms Neurological: Reports: Numbness, Weakness Psychiatric: Reports: No Symptoms ED EXAM, NEURO - Physical Exam Exam: See Below Exam Limited By: No Limitations General Appearance: Alert, No Apparent Distress Ears: Normal External Exam Nose: Normal Inspection Head Exam: Atraumatic, Normocephalic Neck: Normal Inspection Respiratory/Chest: No Respiratory Distress, Lungs Clear, Normal Breath Sounds Cardiovascular: Regular Rate, Rhythm, No Edema, No Murmur Neurological: Alert, Other (Moderate weakness and numbness to the left arm) Back Exam: Normal Inspection Extremities: Normal Inspection #1 Interpretation EKG Date: 12/01/20 Time: 13:18 Rhythm: NSR Rate (Beats/Min): 96 [place]: Normal P-Wave: Present QRS: Normal ST-T: Normal QT: Normal Course - Vital Signs Last Recorded V/S: Last Vital Signs Temp 97.6 F 12/01/20 13:05 Pulse 98 12/01/20 13:05 Resp 16 12/01/20 13:05 BP 163/88 H 12/01/20 13:05 Pulse Ox 97 12/01/20 13:05 - Orders/Labs/Meds Orders: Active Orders 24 hr Category Date Time Status Cardiac Monitoring [RC] . DIRECTED Care 12/01/20 13:10 Active EKG Documentation Completion [RC] STAT Care 12/01/20 13:11 Active Peripheral IV Care [RC] . DIRECTED Care 12/01/20 13:11 Active CORONAVIRUS COVID-19 CHARISSE [MOLEC] Stat Lab 12/01/20 14:19 Ordered Sodium Chloride 0.9% [Saline Flush] Med 12/01/20 13:10 Active 10 ml FLUSH ASDIRECTED PRN Peripheral IV Insertion Adult [OM.PC] Stat Oth 12/01/20 13:10 Ordered Medication Orders Sodium Chloride (Sodium Chloride 0.9% 10 Ml Syringe) 10 ml FLUSH ASDIRECTED PRN PRN Reason: Keep Vein Open Last Admin: 12/01/20 13:32 Dose: 10 ml Documented by: RODERICK Labs: Laboratory Tests 12/01/20 12/01/20 12/01/20 Range/Units 13:09 13:40 13:40 WBC 8.93 (4.23-9.07) K/mm3 RBC 4.78 (4.63-6.08) M/mm3 Hgb 14.6 D (13.7-17.5) gm/dl Hct 43.8 (40.1-51.0) % MCV 91.6 (79.0-92.2) fl MCH 30.5 (25.7-32.2) pg MCHC 33.3 (32.2-35.5) g/dl RDW Std Deviation 43.3 (35.1-43.9) fL Plt Count 223 (163-337) K/mm3 MPV 9.6 (9.4-12.3) fl Neut % (Auto) 84.3 H (34.0-67.9) % Lymph % (Auto) 8.5 L (21.8-53.1) % [place] % (Auto) 6.4 (5.3-12.2) % Eos % (Auto) 0.2 L (0.8-7.0) Baso % (Auto) 0.3 (0.1-1.2) % Neut # (Auto) 7.52 H (1.78-5.38) K/mm3 Lymph # (Auto) 0.76 L (1.32-3.57) K/mm3 [place] # (Auto) 0.57 (0.30-0.82) K/mm3 Eos # (Auto) 0.02 L (0.04-0.54) K/mm3 Baso # (Auto) 0.03 (0.01-0.08) K/mm3 Manual Slide Review Normal smear PT 10.6 (9.7-12.0) SECONDS INR 0.99 APTT 26.4 (21.7-31.4) SECONDS Sodium (136-145) mEq/L Potassium (3.5-5.1) mEq/L Chloride (98-107) mEq/L Carbon Dioxide (21-32) mEq/L Anion Gap (5-15) BUN (7-18) mg/dL Creatinine (0.7-1.3) mg/dL Est Cr Clr Drug Dosing mL/min Estimated GFR (MDRD) (>60) mL/min BUN/Creatinine Ratio (14-18) Glucose (70-99) mg/dL POC Glucose 134 H (70-99) mg/dL Calcium (8.5-10.1) mg/dL Total Bilirubin (0.2-1.0) mg/dL AST (15-37) U/L ALT (16-63) U/L Alkaline Phosphatase (46-116) U/L Troponin I (0.00-0.056) ng/mL Total Protein (6.4-8.2) g/dl Albumin (3.4-5.0) g/dl Globulin gm/dL Albumin/Globulin Ratio (1-2) 12/01/20 Range/Units 13:40 WBC (4.23-9.07) K/mm3 RBC (4.63-6.08) M/mm3 Hgb (13.7-17.5) gm/dl Hct (40.1-51.0) % MCV (79.0-92.2) fl MCH (25.7-32.2) pg MCHC (32.2-35.5) g/dl RDW Std Deviation (35.1-43.9) fL Plt Count (163-337) K/mm3 MPV (9.4-12.3) fl Neut % (Auto) (34.0-67.9) % Lymph % (Auto) (21.8-53.1) % [place] % (Auto) (5.3-12.2) % Eos % (Auto) (0.8-7.0) Baso % (Auto) (0.1-1.2) % Neut # (Auto) (1.78-5.38) K/mm3 Lymph # (Auto) (1.32-3.57) K/mm3 [place] # (Auto) (0.30-0.82) K/mm3 Eos # (Auto) (0.04-0.54) K/mm3 Baso # (Auto) (0.01-0.08) K/mm3 Manual Slide Review PT (9.7-12.0) SECONDS INR APTT (21.7-31.4) SECONDS Sodium 144 (136-145) mEq/L Potassium 3.9 (3.5-5.1) mEq/L Chloride 108 H (98-107) mEq/L Carbon Dioxide 23 (21-32) mEq/L Anion Gap 16.9 H (5-15) BUN 14 (7-18) mg/dL Creatinine 1.5 H (0.7-1.3) mg/dL Est Cr Clr Drug Dosing 41.01 mL/min Estimated GFR (MDRD) 46 (>60) mL/min BUN/Creatinine Ratio 9.3 L (14-18) Glucose 129 H (70-99) mg/dL POC Glucose (70-99) mg/dL Calcium 9.2 (8.5-10.1) mg/dL Total Bilirubin 1.3 H (0.2-1.0) mg/dL AST 22 (15-37) U/L ALT 32 (16-63) U/L Alkaline Phosphatase 86 (46-116) U/L Troponin I < 0.017 (0.00-0.056) ng/mL Total Protein 7.5 (6.4-8.2) g/dl Albumin 4.2 (3.4-5.0) g/dl Globulin 3.3 gm/dL Albumin/Globulin Ratio 1.3 (1-2) Meds: Medications Generic Name Dose Route Start Last Admin Trade Name Freq PRN Reason Stop Dose Admin Sodium Chloride 10 ml 12/01/20 13:10 12/01/20 13:32 Sodium Chloride 0.9% 10 Ml Syringe FLUSH 10 ml ASDIRECTED PRN Administration Keep Vein Open Discontinued Medications Generic Name Dose Route Start Last Admin Trade Name Freq PRN Reason Stop Dose Admin Clopidogrel Bisulfate 300 mg 12/01/20 14:15 12/01/20 14:27 Clopidogrel 75 Mg Tab PO 12/01/20 14:16 300 mg ONETIME ONE Administration - Re-Assessments/Exams Free Text/Narrative Re-Assessment/Exam: 12/01/20 14:48 A stroke alert was called and I went into the room right away. His last time known well was 10am. He has moderate weakness to the left arm. He has no other deficits that I can see. I ordered a CT of his head, EKG, labs and IV saline lock. His EKG shows a NSR with no acute changes. His CT shows mild generalized atrophy. Two small areas of infarct anteriorly on the right side as noted above. Minimal sinus findings which are stable. No acute intracranial abnormality is appreciated. His CBC looks good. His PT and PTT look good. His anion gap is elevated at 16.9. His creatinine is elevated at 1.5. His glucose is 134. His total bili is 1.3. His troponin is negative. I called [facility] in [place] and talked with the neurologist nurse consultant Dr Oliveira and he and I agreed the patient is out of the window for thrombolytics. He did want him to have plavix 300mg and be admitted. I talked with the hospitalist Dr Coombs and he agreed to the transfer. The patient was hesitant to go. He will not go by ambulance. Departure - Departure Time of Disposition: 15:00 Disposition: DC/Tfer to Acute Hospital 02 Condition: Serious Clinical Impression: Cerebrovascular accident (CVA) Qualifiers: CVA mechanism: unspecified Qualified Code(s): I63.9 - Cerebral infarction, unspecified - Discharge Information Referrals: Schuyler Renteria MD [Primary Care Provider] - Sepsis Event Note (ED) - Evaluation Sepsis Screening Result: No Definite Risk - Focused Exam Vital Signs: Vital Signs Temp Pulse Resp BP Pulse Ox 12/01/20 13:05 97.6 F 98 16 163/88 H 97 - My Orders Last 24 Hours: My Active Orders 12/01/20 13:10 Cardiac Monitoring [RC] . DIRECTED Sodium Chloride 0.9% [Saline Flush] 10 ml FLUSH ASDIRECTED PRN Peripheral IV Insertion Adult [OM.PC] Stat 12/01/20 13:11 EKG Documentation Completion [RC] STAT Peripheral IV Care [RC] . DIRECTED 12/01/20 14:19 CORONAVIRUS COVID-19 CHARISSE [MOLEC] Stat - Assessment/Plan Last 24 Hours: My Active Orders 12/01/20 13:10 Cardiac Monitoring [RC] . DIRECTED Sodium Chloride 0.9% [Saline Flush] 10 ml FLUSH ASDIRECTED PRN Peripheral IV Insertion Adult [OM.PC] Stat 12/01/20 13:11 EKG Documentation Completion [RC] STAT Peripheral IV Care [RC] . DIRECTED 12/01/20 14:19 CORONAVIRUS COVID-19 CHARISSE [MOLEC] Stat
== END 2020-12-01 15:20 ==
LOC: JD.ED 12:58
DX: I63.9 Cerebral infarction, unspecified (principal); I10 Essential (primary) hypertension; K21.9 Gastro-esophageal reflux disease without esophagitis; N40.0 Benign prostatic hyperplasia without lower urinary tract symptoms; Z79.82 Long term (current) use of aspirin; Z79.899 Other long term (current) drug therapy; Z20.822 Contact with and (suspected) exposure to COVID-19
CPT/HCPCS: 36415; 70450; 80053; 82947; 84484; 85025; 85610; 85730; 93005; 99285; A9270; U0002; 93010

== ENCOUNTER 2021-09-10 08:28 | Day surgery (SDC) | payer MEDICARE, OTHER ==
[~2021-09-10 08:28] MED LIST changes: +Bupivacaine 0.5%/EPINEPHrine 1:200,000 50 ML MDV ONE; -Cefuroxime 10 MG/ML SYRINGE EYELF SCH; +Lactated Ringers 1,000 ML IV SCH; -Lidocaine 1% PF 2 ML SDV INJECT SCH; +Lidocaine 1%/Sod Bicarbonate in NS 8.4% 1 ML Syringe IDERM PRN; -Pilocarpine 4% Ophth Soln 15 ML Bot EYELF SCH; +Sodium Chloride 0.9% 10 ML Syringe FLUSH PRN; +Sodium Chloride 0.9% 10 ML Syringe FLUSH SCH
[2021-09-10] MEDS ORDERED: Lidocaine 1% 5 ML VIAL ONE (09:40)
[2021-09-10] MEDS ORDERED: Propofol 200 MG/20 ML SDV ONE ×6 (09:41→12:19)
[2021-09-10] MEDS ORDERED: fentaNYL 100 MCG/2 ML SDV ONE ×2 (09:41→13:05)
[2021-09-10] MEDS ORDERED: Lidocaine 1% with EPINEPHrine 1:100,000 10 ML MDV ONE (09:59)
[2021-09-10] MEDS ORDERED: ceFAZolin 1 GM Vial ONE (10:10)
[2021-09-10] MEDS ORDERED: Dexamethasone 4 MG/ML 5 ML MDV ONE (10:24)
[2021-09-10] MEDS ORDERED: Ondansetron 4 MG/2 ML SDV ONE (10:24)
[2021-09-10] MEDS ORDERED: Ketamine 500 mg/10 ML MDV ONE (11:02)
[2021-09-10] MEDS ORDERED: Acetaminophen/HYDROcodone 325-5 MG Tab PO ONE (14:00)
== END 2021-09-10 15:30 | disposition home or self-care (01) ==
LOC: JD.SDS 08:28
PROVIDERS: ATTEND Surgery
DX: K40.90 Unilateral inguinal hernia, without obstruction or gangrene, not specified as recurrent (principal); K21.9 Gastro-esophageal reflux disease without esophagitis; I10 Essential (primary) hypertension; N40.0 Benign prostatic hyperplasia without lower urinary tract symptoms; Z98.890 Other specified postprocedural states; Z79.899 Other long term (current) drug therapy; Z87.891 Personal history of nicotine dependence
CPT/HCPCS: 49505; A9270; J0690; J1100; J2370; J2405; J2704; J3010; J3490; J7120; C1781